=== PATIENT | female | born 1975 | race Caucasian/White ===

== ENCOUNTER 2018-08-03 10:35 | Inpatient (IN) | payer MEDICAID ==
[~2018-08-03] VITALS: Ht 152.4 cm; Wt 82.7 kg
[2018-08-03 10:39] VITALS: Ht 152.4 cm; Wt 82.7 kg
[2018-08-03] MEDS ORDERED: LABE200T25 PO (10:40)
[2018-08-03] MEDS ORDERED: NPH,100I5 SQ ×2 (10:40→10:43)
[2018-08-03] MEDS ORDERED: NOVO7030 SC ×2 (10:41→10:44)
--- NOTE | 2018-08-03 11:35 | TRIAGE ---
OB Triage Datetime Report Generated by CPN: 08/03/2018 11:35 Datetime: 08/03/2018 10:46 Assessment Type: Triage EGA: 29.1 Maternal Assessment Level of Consciousness: Fully Conscious DTR's/Clonus: DTRs 2+; No Clonus Headache: Denies Blurred Vision: No Respiratory Effort: Unlabored; Regular Rhythm; Equal Expansion Breath Sounds, Left: Clear and Equal Breath Sounds, Right: Clear and Equal Nausea/Vomiting: Denies RUQ Epigastric Pain: Present Lower Extremities Edema: None Degree: None Upper Extremities Edema: None Degree: None Facial Edema: None Fall Risk Assessment History of Falling: (0) No Secondary Diagnosis: (0) No Ambulatory Aid: (0) Bedrest/Nurse Assist IV Therapy: (0) No Gait: (0) Normal/Bedrest/Immobile Mental Status: (0) Oriented to Own Ability Fall Score: 0 Fall Risk Score Definition: No Risk: No action required Datetime: 08/03/2018 10:44 Time of Arrival: 08/03/2018 10:44 Arrived By: Ambulatory Arrived From: Home Chief Complaint: PT CAM EIN C/O BLEEDING SINCE YESTERDAY Movement: Present Contractions: Denies/Absent Rupture of Membranes: Denies Vaginal Discharge: Denies Recent Sexual Intercouse: Denies Abdominal Trauma: Not Applicable Patient Complaints: Other Additional Patient Complaints: NONE Time Provider Notified: 08/03/2018 11:00 Provider Notified: GEORGI Initial Plan: NST, BPP, PLACENTA,
[2018-08-03] MEDS ORDERED: MAGNESIUM SULFATE 4 GM/100 ML 100 ML IV ONE (12:00)
[2018-08-03] MEDS: MAGNESIUM SULFATE 20 GM/500 ML 500 ML IV SCH ×2 (12:34→23:18)
[2018-08-03] MEDS: LABETALOL 200 MG TAB PO SCH ×2 (13:28→21:43)
[2018-08-03] MEDS ORDERED: CARBOPROST 250 MCG INJ IM PRN (14:00)
[2018-08-03] MEDS ORDERED: MISOPROSTOL 200 MCG TAB PR PRN ×2 (14:00→16:30)
[2018-08-03] MEDS ORDERED: hydrALAzine 20 MG INJ IV PRN ×2 (14:00→16:30)
[2018-08-03] MEDS ORDERED: OXYTOCIN 30 UNITS/LR 500 ML IV PRN (14:00)
[2018-08-03] MEDS ORDERED: METHYLERGONOVINE 0.2 MG INJ IM PRN (14:00)
[2018-08-03] MEDS ORDERED: LABETALOL HCL 20MG INJ IV ONE (14:00)
[2018-08-03] MEDS ORDERED: BETAMET NA PHOS/AC(6 MG/ML) 2 ML INJ SYG IM SCH (14:00)
[2018-08-03] MEDS ORDERED: CEFAZOLIN 2 GM/50 ML (PMX) 50 ML IVPB SCH (14:00)
[2018-08-03] MEDS ORDERED: LABETALOL HCL 20MG INJ IV PRN ×2 (14:00)
--- NOTE | 2018-08-03 14:10 | HP ---
Date/Time of Note Date/Time of Note DATE: 08/03/18 TIME: 14:03 OB - History Hx of Present Free Text/Dictation 43 YO with EDC 10/18/2018 with IUP at 29.1 weeks who presents to L&D due to vaginal spotting. she has severe range BPs and 2+ proteinuria and elevated AST and ALT and decreased platelet. Both Dr. Goode and I agree that she needs to be delivered. not safe to prolong the to get benefit from steroids. I discussed with the patient the risks, benefits, indications, and alternatives of including but not limited to risks of infection, bleeding, damage to other organs, bowel, bladder, hernia formation, scar formation, possibility of blood transfusion, possible need for emergency hysterectomy and risks of prematurity that may cause permanent mental or physical disabilities or . She was allowed to ask questions. All her questions were answered. Informed consent has been obtained. Care: Good Care Ultrasounds: Normal mid trimester US Obstetrical Complications: Pre-eclampsia, Other (Preeclampsia with severe features and HELLP Syndrome superimposed on chronic hypertension and Type 2 Diabete) Past Family/Social History * Past Medical, Surgical, Family and Obstetric Histories reviewed from chart. OB Admission Exam Physical Exam HEENT: WNL Heart: Rhythm Normal Lungs: Clear, Equal Abdomen: WNL Extremities: Normal Reflexes: Normal Last 72 hours Lab Results CBC & BMP 08/03/18 12:00 Liver Function Test 08/03/18 12:00 Alanine Aminotransferase (ALT/SGPT) 96 H Albumin 3.2 L Alkaline Phosphatase 142 H Aspartate Amino Transf (AST/SGOT) 139 H Direct Bilirubin 0.00 Total Protein 6.5 Magnesium Level Test 08/03/18 12:00 Magnesium Level 1.8 OB Assessment/Plan Other Assessment: IUP at 29.1 weeks Preeclampsia with severe features and HELLP Syndrome superimposed on chronic hypertension and Type 2 Diabetes Plan: Section SETH LAUREANO MD August 03, 2018 14:10
--- NOTE | 2018-08-03 14:52 | PREAC ---
Date/Time of Note Date/Time of Note DATE: 08/03/18 TIME: 14:51 Anesthesia Eval and Record Evaluation Time Pre-Procedure Interview DATE: 08/03/18 TIME: 14:51 Age 43 Sex female NPO: 8 hrs Preoperative diagnosis IUP AT 29 WEEKS Planned procedure EMERGENT C SECTION Past Medical History Past Medical History: Includes Heme: Anemia, Thrombocytopenia : PIH Surgery & Anesthesia Issues No known issue Meds Anticoagulation: No Beta Nathaly within 24 hr: No Reason Beta Nathaly not given: Pt. not on B-Nathaly Reported Medications Insulin Isophan/Regular (Humulin 70/30) 100 Units/Ml Susp, 13 UNIT SC AC DINNER, EA 08/03/18 NPH, Human Insulin Isophane (Humulin N Kwikpen) 100 Unit/1 Ml Insuln.pen, 17 UNIT SQ AC DINNER, EA 08/03/18 Insulin Isophan/Regular (Humulin 70/30) 100 Units/Ml Susp, 21 UNIT SC AC BREAKFAST, EA 08/03/18 NPH, Human Insulin Isophane (Humulin N Kwikpen) 100 Unit/1 Ml Insuln.pen, 35 UNIT SQ, EA 08/03/18 Labetalol Hcl* (Labetalol Hcl*) 200 Mg Tablet, 200 MG PO BID, TAB 08/03/18 Current Medications Lactated Ringer's 1,000 ml @ 125 mls/hr Q8H IV ; Start 08/03/18 at 11:59 Magnesium Sulfate 500 ml @ 50 mls/hr Q10H IV Last administered on 08/03/18at 12:34; Admin Dose 50 MLS/HR; Start 08/03/18 at 11:59 Prenat Multivit/ [place]/Iron/Folic Ac () 1 tab DAILY PO ; Start 08/04/18 at 09:00 Ferrous Sulfate (Ferrous Sulfate (Ec)) 325 mg DAILY PO ; Start 08/04/18 at 09:00 Docusate Sodium (Colace) 100 mg DAILY PO ; Start 08/04/18 at 09:00 Labetalol HCl (Normodyne) 200 mg BID PO Last administered on 08/03/18at 13:28; Admin Dose 200 MG; Start 08/03/18 at 12:00 Labetalol HCl (Labetalol) 40 mg ONCE PRN IV ELEVATED BLOOD PRESSURE; Start 08/03/18 at 14:00 Labetalol HCl (Labetalol) 80 mg ONCE PRN IV ELEVATED BLOOD PRESSURE; Start 08/03/18 at 14:00 Hydralazine HCl (Apresoline) 10 mg ONCE PRN IV ELEVATED BLOOD PRESSURE; Start 08/03/18 at 14:00 Betamethasone Acet/Betameth SodPhos (Celestone Soluspan) 12 mg Q24H IM Last administered on 08/03/18at 14:31; Admin Dose 12 MG; Start 08/03/18 at 14:00; Stop 08/04/18 at 14:01 Cefazolin Sodium/ Dextrose 50 ml @ 100 mls/hr ONCE IVPB ; Start 08/03/18 at 14:0 0 Oxytocin/Lactated Ringer's 500 ml @ 125 mls/hr POST IV ; Start 08/03/18 at 14:00 Oxytocin/Lactated Ringer's 500 ml @ 0 mls/hr ONCE PRN IV .VAGINAL BLEEDING; Start 08/03/18 at 14:00 Methylergonovine Maleate (Methergine) 0.2 mg ONCE PRN IM .VAGINAL BLEEDING; Start 08/03/18 at 14:00 Carboprost Tromethamine (Hemabate) 250 mcg ONCE PRN IM .VAGINAL BLEEDING; Start 08/03/18 at 14:00 Misoprostol (Cytotec) 1,000 mcg ONCE PRN OR .VAGINAL BLEEDING; Start 08/03/18 at 14:00 Meds reviewed: Yes Allergies Coded Allergies: No Known Allergy (Unverified , 08/03/18) Allergies Reviewed: Yes Labs/Studies Labs Reviewed: Reviewed by anesthesiologist Result Diagram: 08/03/18 1200 08/03/18 1200 Laboratory Tests 08/03/18 12:00 Blood Bank Test 08/03/18 12:00 08/03/18 13:57 Blood Type O POSITIVE Rh Immune Globulin Candidate NO Blood Product Summary Counts test: Positive Pre-procedure Exam Airway: Adequate mouth opening, Adequate thyromental dist Mallampati: Mallampati II Teeth: Normal Lung: Normal Heart: Normal ASA Physical Status ASA physical status: 3 Emergency: None Planned Anesthetic Neuraxial: Spinal Planned Pain Management Sub-arachniod narcotics Pre-operative Attestations Prior to commencing anesthesia and surgery, the patient was re-evaluated, there was verification of: *The patient's identity *The results of appropriate recent lab work and preoperative vital signs *The above evaluation not changing prior to induction *Anesthetic plan, risk benefits, alternative and complications discussed with patient/family; questions answered; patient/family understands, accepts and wishes to proceed. MUMTAZ DUTTON August 03, 2018 14:52
[2018-08-03] MEDS ORDERED: morphine SULFATE/PF (10 MG/10 ML) INJ ONE (15:01)
[2018-08-03] MEDS ORDERED: FENTAnyl 50 MCG/ML VIAL ONE (15:08)
[2018-08-03] MEDS ORDERED: ONDANSETRON 4 MG INJ ONE (15:08)
[2018-08-03] MEDS ORDERED: DEXAMETHASONE 4 MG/ML 1 ML INJ ONE (15:08)
[2018-08-03] MEDS ORDERED: OXYTOCIN 30 UNITS/LR 500 ML IV ONE ×2 (15:27→15:39)
[2018-08-03] MEDS ORDERED: DIPHENHYDRAMINE 50 MG INJ IV PRN (16:00)
[2018-08-03] MEDS ORDERED: ZOLPIDEM 5 MG TAB PO PRN (16:00)
[2018-08-03] MEDS ORDERED: HYDROmorphONE 0.5 MG/0.5 ML SYG IV PRN ×2 (16:00)
[2018-08-03] MEDS ORDERED: KETOROLAC 30 MG INJ IV PRN (16:00)
[2018-08-03] MEDS ORDERED: NALOXONE (0.4 MG/ML) INJ IV PRN (16:00)
--- NOTE | 2018-08-03 16:10 | OPR ---
Date/Time of Note Date/Time of Note DATE: 08/03/18 TIME: 16:06 Operative Report Procedure Date: August 03, 2018 Preoperative Diagnosis IUP at 29 weeks Preeclampsia with severe features HELLP Syndrome Diabetes Vaginal bleeding Postoperative Diagnosis Same Operation/Procedure Performed Primary low transverse delivery Surgeon Corie Delgado MD Phototypesetting Equipment Monitor Miryam Ramirez MD Anesthesia Type: spinal Estimated Blood Loss: other (700) Transfusion none Specimen placenta Grafts/Implants none Tubes/Drains Edouard Cath Complications none Pt Condition Post Procedure: stable Disposition: PACU Procedure Description The risks, benefits, indications, alternatives of procedure including, but not limited to risk of infection, bleeding, damage to other organs, bowel, bladder, hernia formation, scar formation, possibility of blood transfusions were discussed with the patient. She was allowed to ask questions. All her questions were answered. Informed consent was obtained. DESCRIPTION OF PROCEDURE: She was taken to the operating room. Spinal anesthesia was induced. She was prepped and draped in the usual sterile fashion. Surgical time out one. Anesthesia was tested to be adequate. With permission from anesthesiologist, a knife was used to make a Pfannenstiel skin incision. The incision was taken down in layers. The fascia was cut, undermined and from the underlying muscle using sharp and blunt dissection. All the bleeders were cauterized. Peritoneum was entered bluntly. A low transverse incision was developed over the uterus. Amniotic fluid was clear and adequate. A viable infant in vertex presentation was delivered without any difficulty. The cord was clamped and cut, handed to awaiting team. Placenta was then delivered. Uterus was exteriorized, wrapped around a moist lap. Inside uterus was cleaned using a dry lap. All residual membranes were removed. The uterine incision was then closed using #1 Monocryl in 2 layers. The uterus was inserted back inside the abdominal cavity. Irrigation was done carefully. Careful evaluation of the uterine incision revealed no further bleeding. The peritoneum and rectus muscles and fascia were evaluated. All bleeders cauterized. Peritoneum was closed using 2-0 Monocryl. At this time, the count was correct. Rectus muscle was reapproximated using 2-0 Monocryl. Rectus fascia was closed using #1 Vicryl. Subcutaneous tissue was cleaned and irrigated. All bleeders cauterized and the skin closed using 4-0 Monocryl. All counts correct. CORIE DELGADO MD August 03, 2018 16:10
[2018-08-03] MEDS ORDERED: LACTATED RINGER'S 1,000 ML IV SCH (16:12)
[2018-08-03] MEDS ORDERED: OXYCODONE/ACETAMINOPHEN (5/325) TAB PO PRN (16:30)
[2018-08-03] MEDS ORDERED: LANOLIN HPA 1 PKT TOP PRN (16:30)
[2018-08-03] MEDS ORDERED: NA PHOSPHATE/BIPHOS 133 ML ENEMA PR PRN (16:30)
--- NOTE | 2018-08-03 16:36 | CONS ---
Assessment/Plan Assessment/Plan Problems: (1) Diabetes mellitus type 2 in obese Status: Chronic Comment: I expect her sugars will have some degree of rise after the betamethasone dosing. However in the setting she is also now and delivered. Her insulin needs would have decreased enormously. For now can place her on very low-dose insulin therapy with frequent Accu-Cheks. When she starts to get past the immediately worrisome phase of help syndrome we can liberalize has had some more routine protocol. In addition at that time I would then add in the metformin. We will see how she does over the next 48 hours with getting this transition over to more stable outpatient regimen. For now will be a little bit more intensively involved (2) HELLP syndrome (HELLP), third trimester Status: Acute Comment: Medially . Follow closely for liver chemistries, and platelet counts and hypertension. (3) -induced hypertension in second trimester Status: Acute Comment: She is on calcium channel gayle for this at this time. Working with Dr. Gutierrez Consultation Date/Type/Reason Admit Date/Time August 03, 2018 at 11:00 Date of Consultation: August 03, 2018 Type of Consult Endocrinology Reason for Consultation Diabetes mellitus type 2 predating this ; patient admitted with help syndrome and eclampsia requiring urgent delivery. Requesting Provider: SETH LAUREANO MD Date/Time of Note DATE: 08/03/18 TIME: 16:27 Hx of Present Illness Charadriana 43-year-old female G4, P3 Ab1 immediately post emergent delivery. She is seen in the recovery area of labor and delivery. Has a history of type 2 diabetes managed with metformin as a single agent prior to . Reports she did not have elevations of blood pressure prepregnancy. She did come into the hospital with help syndrome and eclampsia and required urgent delivery. In addition of the time of delivery she was given a dosage of betamethasone for the benefit of the baby. We are asked to assist with her as her sugars are expected to rise somewhat. Constitutional: no complaints Eyes: no complaints ENT: no complaints Respiratory: no complaints Cardiovascular: no complaints Gastrointestinal: other (Abnormal LFTs acutely with help syndrome) Genitourinary: no complaints Musculoskeletal: no complaints Skin: no complaints Past Medical History Medical History: diabetes (Type II), other (G4, P3 Ab1) Home Meds Reported Medications Insulin Isophan/Regular (Humulin 70/30) 100 Units/Ml Susp, 13 UNIT SC AC DINNER, EA 08/03/18 NPH, Human Insulin Isophane (Humulin N Kwikpen) 100 Unit/1 Ml Insuln.pen, 17 UNIT SQ AC DINNER, EA 08/03/18 Insulin Isophan/Regular (Humulin 70/30) 100 Units/Ml Susp, 21 UNIT SC AC BREAKFAST, EA 08/03/18 NPH, Human Insulin Isophane (Humulin N Kwikpen) 100 Unit/1 Ml Insuln.pen, 35 UNIT SQ, EA 08/03/18 Labetalol Hcl* (Labetalol Hcl*) 200 Mg Tablet, 200 MG PO BID, TAB 08/03/18 Medications Current Medications Lactated Ringer's 1,000 ml @ 125 mls/hr Q8H IV ; Start 08/03/18 at 11:59 Magnesium Sulfate 500 ml @ 50 mls/hr Q10H IV Last administered on 08/03/18at 12:34; Admin Dose 50 MLS/HR; Start 08/03/18 at 11:59 Prenat Multivit/ [place]/Iron/Folic Ac () 1 tab DAILY PO ; Start 08/04/18 at 09:00 Ferrous Sulfate (Ferrous Sulfate (Ec)) 325 mg DAILY PO ; Start 08/04/18 at 09:00 Docusate Sodium (Colace) 100 mg DAILY PO ; Start 08/04/18 at 09:00 Labetalol HCl (Normodyne) 200 mg BID PO Last administered on 08/03/18at 13:28; Admin Dose 200 MG; Start 08/03/18 at 12:00 Labetalol HCl (Labetalol) 40 mg ONCE PRN IV ELEVATED BLOOD PRESSURE; Start 08/03/18 at 14:00 Labetalol HCl (Labetalol) 80 mg ONCE PRN IV ELEVATED BLOOD PRESSURE; Start 08/03/18 at 14:00 Hydralazine HCl (Apresoline) 10 mg ONCE PRN IV ELEVATED BLOOD PRESSURE; Start 08/03/18 at 14:00 Betamethasone Acet/Betameth SodPhos (Celestone Soluspan) 12 mg Q24H IM Last administered on 08/03/18at 14:31; Admin Dose 12 MG; Start 08/03/18 at 14:00; Stop 08/04/18 at 14:01 Cefazolin Sodium/ Dextrose 50 ml @ 100 mls/hr ONCE IVPB ; Start 08/03/18 at 14:00 Oxytocin/Lactated Ringer's 500 ml @ 125 mls/hr POST IV ; Start 08/03/18 at 14:00 Oxytocin/Lactated Ringer's 500 ml @ 0 mls/hr ONCE PRN IV .VAGINAL BLEEDING; Start 08/03/18 at 14:00 Methylergonovine Maleate (Methergine) 0.2 mg ONCE PRN IM .VAGINAL BLEEDING; Start 08/03/18 at 14:00 Carboprost Tromethamine (Hemabate) 250 mcg ONCE PRN IM .VAGINAL BLEEDING; Start 08/03/18 at 14:00 Misoprostol (Cytotec) 1,000 mcg ONCE PRN VT .VAGINAL BLEEDING; Start 08/03/18 at 14:00 Naloxone HCl (Narcan) 0.1 mg Q2M PRN IV .RESP RATE; Start 08/03/18 at 16:00; Stop 08/04/18 at 15:59 Ketorolac Tromethamine (Toradol) 30 mg Q6H PRN IV PAIN AFTER CSECTION; Start 08/03/18 at 16:00; Stop 08/04/18 at 15:59 Hydromorphone HCl (Dilaudid) 0.2 mg Q3H PRN IV .PAIN 1-5; Start 08/03/18 at 16:00; Stop 08/04/18 at 15:59 Hydromorphone HCl (Dilaudid) 0.4 mg Q3H PRN IV .PAIN 6-10; Start 08/03/18 at 16:00; Stop 08/04/18 at 15:59 Diphenhydramine HCl (Benadryl) 25 mg Q6H PRN IV .ITCHING; Start 08/03/18 at 16:00; Stop 08/04/18 at 15:59 Ondansetron HCl (Zofran Inj) 4 mg Q6H PRN IV .NAUSEA/VOMITING; Start 08/03/18 at 16:00; Stop 08/04/18 at 15:59 Zolpidem Tartrate (Ambien) 5 mg HS MAY REPEAT X 1 PRN PO .INSOMNIA; Start 08/03/18 at 16:00; Stop 08/04/18 at 15:59 Miscellaneous Information (* Miscellaneous Pharmacy Order) Duramorph: .2 mg Epidu... GIVEN XX ; Start 08/03/18 at 16:00 Miscellaneous Information (* Miscellaneous Pharmacy Order) Discontinue current oral sulfonylur... ONCE ONCE XX ; Start 08/03/18 at 16:30; Stop 08/03/18 at 16:31 Diagnostic Test (Pha) (Accu-Chek) 1 ea 02 XX ; Start 08/04/18 at 02:00 Miscellaneous Information (* Miscellaneous Pharmacy Order) HYPOGLYCEMIA PROTOCOL w... ONCE ONCE XX ; Start 08/03/18 at 16:30; Stop 08/03/18 at 16:31 Insulin Aspart (Novolog Insulin Pen) NOVOLOG *MILD* ALGORITHM Q6 SC ; Start 08/03/18 at 18:00 Miscellaneous Information (* Miscellaneous Pharmacy Order) Discontinue all previ... ONCE ONCE XX ; Start 08/03/18 at 16:30; Stop 08/03/18 at 16:31 Hydralazine HCl (Apresoline) 10 mg Q4H PRN IV sbp greater than 160; Start 08/03/18 at 16:30 Lactated Ringer's 1,000 ml @ 125 mls/hr Q8H IV ; Start 08/03/18 at 16:12; Stop 08/03/18 at 20:11 Oxycodone/ Acetaminophen (Percocet (5/ 325)) 1 tab Q4H PRN PO .PAIN 4-6; Start 08/03/18 at 16:30 Oxycodone/ Acetaminophen (Percocet (5/ 325)) 2 tab Q4H PRN PO .PAIN 7-10; Start 08/03/18 at 16:30 Simethicone (Mylicon) 160 mg Q8H PRN PO .GAS; Start 08/03/18 at 16:30 Senna/Docusate Sodium (Senokot-S) 1 tab BID PO ; Start 08/03/18 at 21:00 Sodium Biphosphate/ Sodium Phosphate (Fleet Enema) 133 ml DAILY PRN VT .CONSTIPATION; Start 08/03/18 at 16:30 Lanolin (Lanolin Hpa) 1 applic BEDSIDE MEDICATION PRN TOP .NIPPLES; Start 08/03/18 at 16:30 Diphtheria/ Tetanus/Acell Pertussis (Adacel) 0.5 ml ONCE ONCE IM* ; Start 08/06/18 at 09:00; Stop 08/06/18 at 09:01 Measles/Mumps/ Rubella Vaccine Live (Mmr Ii Vaccine) 0.5 ml ONCE ONCE SC* ; Sta rt 08/06/18 at 09:00; Stop 08/06/18 at 09:01 Misoprostol (Cytotec) 1,000 mcg ONCE PRN VT .VAGINAL BLEEDING; Start 08/03/18 at 16:30 Labetalol HCl (Normodyne) 200 mg BID PO ; Start 08/03/18 at 21:00 Nifedipine (Procardia) 10 mg Q6 PO ; Start 08/03/18 at 18:00 Nifedipine (Procardia Xl) 60 mg BID PO ; Start 08/03/18 at 21:00 Allergies: Coded Allergies: No Known Allergy (Unverified , 08/03/18) Past Surgical History Past Surgical Hx: other (S post laparoscopy for ectopic ) Family History Significant Family History: diabetes Social History Born in [facility] and raised there is [place] for 16 years lives with her spouse and 2 children, works as a cook in a fast food restaurant Alcohol Use: none Smoking Status: Former smoker Drug Use: none Exam/Review of Systems Exam Exam Seen in the recovery area of labor and delivery Constitutional: alert, oriented Eyes: nl conjunctiva, EOMI, nl lids ENMT: nl external ears & nose, nl lips & teeth, nl nasal mucosa & septum Neck: supple, non-tender Respiratory: clear to auscultation, normal air movement Cardiovascular: regular rate and rhythm, nl pulses Gastrointestinal: soft, nl liver, spleen, non-tender Extremities: normal pulses Neurological: PAPER SAMPLE CLERK II-XII intact, nl mental status, nl speech, nl strength Results Result Diagram: 08/03/18 1200 08/03/18 1200 Results 24hrs Laboratory Tests Test 08/03/18 11:40 08/03/18 12:00 Urine Color YELLOW Urine Clarity SLIGHTLY CLOUDY A Urine pH 6.0 Urine Specific [place] 1.024 Urine Ketones NEGATIVE Urine Nitrite NEGATIVE Urine Bilirubin NEGATIVE Urine Urobilinogen NEGATIVE Urine Leukocyte Esterase NEGATIVE Urine Microscopic RBC 5 Urine Microscopic WBC 2 Urine Squamous Epithelial Cells FEW Urine Bacteria FEW A Urine Mucus FEW A Urine Hemoglobin 3+ H Urine Glucose NEGATIVE Urine Total Protein 2+ H White Blood Count 12.8 H Red Blood Count 4.45 Hemoglobin 12.8 Hematocrit 38.6 Mean Corpuscular Volume 86.7 Mean Corpuscular Hemoglobin 28.8 L Mean Corpuscular Hemoglobin Concent 33.2 Red Cell Distribution Width 14.5 Platelet Count 74 L Mean Platelet Volume 11.8 H Immature Granulocytes % 0.700 H Neutrophils % 77.1 H Lymphocytes % 15.2 Monocytes % 6.4 Eosinophils % 0.3 Basophils % 0.3 Nucleated Red Blood Cells % 0.0 Immature Granulocytes # 0.090 H Neutrophils # 9.9 H Lymphocytes # 1.9 Monocytes # 0.8 Eosinophils # 0.0 Basophils # 0.0 Nucleated Red Blood Cells # 0.0 Prothrombin Time 13.4 Prothrombin Time Ratio 1.0 INR International Normalized Ratio 1.01 Activated Partial Thromboplast Time 26.9 Fibrinogen 472.0 H Sodium Level 136 Potassium Level 4.0 Chloride Level 108 Carbon Dioxide Level 24 Anion Gap 4 L Blood Urea Nitrogen 13 Creatinine 0.54 Est Glomerular Filtrat Rate mL/min > 60 Glucose Level 102 Calcium Level 9.2 Magnesium Level 1.8 Total Bilirubin 0.4 Direct Bilirubin 0.00 Indirect Bilirubin 0.4 Aspartate Amino Transf (AST/SGOT) 139 H Alanine Aminotransferase (ALT/SGPT) 96 H Alkaline Phosphatase 142 H Total Protein 6.5 Albumin 3.2 L Globulin 3.30 H Albumin/Globulin Ratio 0.96 Medications Medication Current Medications Lactated Ringer's 1,000 ml @ 125 mls/hr Q8H IV ; Start 08/03/18 at 11:59 Magnesium Sulfate 500 ml @ 50 mls/hr Q10H IV Last administered on 08/03/18at 12:34; Admin Dose 50 MLS/HR; Start 08/03/18 at 11:59 Prenat Multivit/ [place]/Iron/Folic Ac () 1 tab DAILY PO ; Start 08/04/18 at 09:00 Ferrous Sulfate (Ferrous Sulfate (Ec)) 325 mg DAILY PO ; Start 08/04/18 at 09:00 Docusate Sodium (Colace) 100 mg DAILY PO ; Start 08/04/18 at 09:00 Labetalol HCl (Normodyne) 200 mg BID PO Last administered on 08/03/18at 13:28; Admin Dose 200 MG; Start 08/03/18 at 12:00 Labetalol HCl (Labetalol) 40 mg ONCE PRN IV ELEVATED BLOOD PRESSURE; Start 08/03/18 at 14:00 Labetalol HCl (Labetalol) 80 mg ONCE PRN IV ELEVATED BLOOD PRESSURE; Start 08/03/18 at 14:00 Hydralazine HCl (Apresoline) 10 mg ONCE PRN IV ELEVATED BLOOD PRESSURE; Start 08/03/18 at 14:00 Betamethasone Acet/Betameth SodPhos (Celestone Soluspan) 12 mg Q24H IM Last administered on 08/03/18at 14:31; Admin Dose 12 MG; Start 08/03/18 at 14:00; Stop 08/04/18 at 14:01 Cefazolin Sodium/ Dextrose 50 ml @ 100 mls/hr ONCE IVPB ; Start 08/03/18 at 14:00 Oxytocin/Lactated Ringer's 500 ml @ 125 mls/hr POST IV ; Start 08/03/18 at 14:00 Oxytocin/Lactated Ringer's 500 ml @ 0 mls/hr ONCE PRN IV .VAGINAL BLEEDING; Start 08/03/18 at 14:00 Methylergonovine Maleate (Methergine) 0.2 mg ONCE PRN IM .VAGINAL BLEEDING; Start 08/03/18 at 14:00 Carboprost Tromethamine (Hemabate) 250 mcg ONCE PRN IM .VAGINAL BLEEDING; Start 08/03/18 at 14:00 Misoprostol (Cytotec) 1,000 mcg ONCE PRN VT .VAGINAL BLEEDING; Start 08/03/18 at 14:00 Naloxone HCl (Narcan) 0.1 mg Q2M PRN IV .RESP RATE; Start 08/03/18 at 16:00; Stop 08/04/18 at 15:59 Ketorolac Tromethamine (Toradol) 30 mg Q6H PRN IV PAIN AFTER CSECTION; Start 08/03/18 at 16:00; Stop 08/04/18 at 15:59 Hydromorphone HCl (Dilaudid) 0.2 mg Q3H PRN IV .PAIN 1-5; Start 08/03/18 at 16:00; Stop 08/04/18 at 15:59 Hydromorphone HCl (Dilaudid) 0.4 mg Q3H PRN IV .PAIN 6-10; Start 08/03/18 at 16:00; Stop 08/04/18 at 15:59 Diphenhydramine HCl (Benadryl) 25 mg Q6H PRN IV .ITCHING; Start 08/03/18 at 16:00; Stop 08/04/18 at 15:59 Ondansetron HCl (Zofran Inj) 4 mg Q6H PRN IV .NAUSEA/VOMITING; Start 08/03/18 at 16:00; Stop 08/04/18 at 15:59 Zolpidem Tartrate (Ambien) 5 mg HS MAY REPEAT X 1 PRN PO .INSOMNIA; Start 08/03/18 at 16:00; Stop 08/04/18 at 15:59 Miscellaneous Information (* Miscellaneous Pharmacy Order) Duramorph: .2 mg Epidu... GIVEN XX ; Start 08/03/18 at 16:00 Miscellaneous Information (* Miscellaneous Pharmacy Order) Discontinue current oral sulfonylur... ONCE ONCE XX ; Start 08/03/18 at 16:30; Stop 08/03/18 at 16:31 Diagnostic Test (Pha) (Accu-Chek) 1 ea 02 XX ; Start 08/04/18 at 02:00 Miscellaneous Information (* Miscellaneous Pharmacy Order) HYPOGLYCEMIA PROTOCOL w... ONCE ONCE XX ; Start 08/03/18 at 16:30; Stop 08/03/18 at 16:31 Insulin Aspart (Novolog Insulin Pen) NOVOLOG *MILD* ALGORITHM Q6 SC ; Start 08/03/18 at 18:00 Miscellaneous Information (* Miscellaneous Pharmacy Order) Discontinue all previ... ONCE ONCE XX ; Start 08/03/18 at 16:30; Stop 08/03/18 at 16:31 Hydralazine HCl (Apresoline) 10 mg Q4H PRN IV sbp greater than 160; Start 08/03/18 at 16:30 Lactated Ringer's 1,000 ml @ 125 mls/hr Q8H IV ; Start 08/03/18 at 16:12; Stop 08/03/18 at 20:11 Oxycodone/ Acetaminophen (Percocet (5/ 325)) 1 tab Q4H PRN PO .PAIN 4-6; Start 08/03/18 at 16:30 Oxycodone/ Acetaminophen (Percocet (5/ 325)) 2 tab Q4H PRN PO .PAIN 7-10; Start 08/03/18 at 16:30 Simethicone (Mylicon) 160 mg Q8H PRN PO .GAS; Start 08/03/18 at 16:30 Senna/Docusate Sodium (Senokot-S) 1 tab BID PO ; Start 08/03/18 at 21:00 Sodium Biphosphate/ Sodium Phosphate (Fleet Enema) 133 ml DAILY PRN VT .CONSTIPATION; Start 08/03/18 at 16:30 Lanolin (Lanolin Hpa) 1 applic BEDSIDE MEDICATION PRN TOP .NIPPLES; Start at 16:30 Diphtheria/ Tetanus/Acell Pertussis (Adacel) 0.5 ml ONCE ONCE IM* ; Start 08/06/18 at 09:00; Stop 08/06/18 at 09:01 Measles/Mumps/ Rubella Vaccine Live (Mmr Ii Vaccine) 0.5 ml ONCE ONCE SC* ; Start 08/06/18 at 09:00; Stop 08/06/18 at 09:01 Misoprostol (Cytotec) 1,000 mcg ONCE PRN VT .VAGINAL BLEEDING; Start 08/03/18 at 16:30 Labetalol HCl (Normodyne) 200 mg BID PO ; Start 08/03/18 at 21:00 Nifedipine (Procardia) 10 mg Q6 PO ; Start 08/03/18 at 18:00 Nifedipine (Procardia Xl) 60 mg BID PO ; Start 08/03/18 at 21:00 MANDEPE RIDER MD August 03, 2018 16:36
--- NOTE | 2018-08-03 16:39 | PN ---
DATE: 08/03/2018 The patient has intrauterine at 29 weeks and 1 day, presented with severe elevation of bloo d pressure. She has chronic hypertension and diabetes. At the time of presentation, blood pressure was 190/105, I believe and the reason for her coming to the hospital was vaginal bleeding. After the laboratory results were done, her platelet is in the 74. AST, ALT are elevated. Given her severe e levation of blood pressure and the lab results, she meets the diagnoses of IUP at 29 weeks and 1 day with HELLP syndrome, vaginal bleeding and some cramping which may be significant for small placental abruption. Currently, heart tone is reassuring. Recommendation is delivery immediately. NICU should be present and consult anesthesia. Three pack units of platelets were ordered as this patien t most likely will need platelet replacement after delivery or intrapartum. Please do note that this patient is at very increased risk of developing pulmonary edema, so strict ins and outs are recommen ded. After delivery, magnesium sulfate should be started and continued at least for 24 hours; amanuel christine if her creatinine is elevated above 1.2, I do recommend checking magnesium level every 1 to 2 hours as she would be at increased risk of magnesium toxicity. In summary, delivery immediately, 3 pack u nits of the platelets and anesthesia consult, NICU to be present, strict ins and outs, advancement on magnesium. She is at increased risk of pulmonary edema even without magnesium sulfate and if creati nine is above 1, then every 1 to 2 hours magnesium level should be assessed to decrease the risk of m agnesium toxicity. In general, platelet function is not decreased during HELLP syndrome, so with the 74,000 of platelet the risk of huge bleeding should be not high but platelet overall is necessary as this patient most likely would need platelet or maybe intrapartum. I explained to the mo ther and the father the very high risk of placental abruption, , maternal DIC, pulmonary e terra or sometimes maternal and therefore the delivery cannot be postponed and they do understan d the will be admitted to ICU for the 's for few weeks. The risks for the fetus are t o be explained by the NICU. Dictated By: VELMA GONZALEZ MD ST/NTS Conf#: [id number] DID#: [id number] CC: SETH LAUREANO MD; SABRINA WELLS MD;*[facility]*
--- NOTE | 2018-08-03 16:48 | CONS ---
Assessment/Plan Assessment/Plan Hospital Course (Demo Recall) Patient is a female the past medical history significant for diabetes mellitus and hypertension who presents to [facility] for vaginal bleeding. Patient was diagnosed with elevated blood pressure preeclampsia, help syndrome and baby was delivered by section. Patient is currently doing well in the recovery area of labor and delivery and has no acute complaints. Medicine was consulted for help with management of blood pressure. Patient denies chest pain, shortness of breath, dizziness, vision problems, cannot move her legs yet. Objective Physical exam General: Patient is laying in bed and answers questions appropriately Mentation: Patient is alert and oriented 4, Head: Normocephalic atraumatic Eyes: EOMI, pupils reactive to light Neck: Supple, nontender, midline Respiratory: Clear to auscultation bilaterally Cardiovascular: regular rate, no obvious murmurs Gastrointestinal: Minimally tender to palpation, bowel sounds heard. Neurological: Moves upper extremities spontaneously, cannot move lower extremities spontaneously Skin: Surgical site bandaged, CDI Assessment and plan Preeclampsia with hellp syndrome -Betamethasone and magnesium per OB -We will need to manage her blood pressure carefully, continue patient's labetalol, will be started patient on nifedipine, reasonable to continue however will add parameters. -As needed hydralazine -OB managed with delivery -Monitor very closely Diabetes mellitus -Insulin at home -Printing Assistant is on board Hypertension -Continue home medications and adjust medications while inpatient until danger. Is over from above hellp syndrome. Thrombocytopenia -Likely secondary to above syndrome, transfuse as needed Elevated liver enzymes -Likely secondary to above syndrome, monitor closely, repeat liver labs tomorrow Disposition -Follow along with OB and financial services representative, monitor blood pressure, blood sugars and magnesium level closely. Consultation Date/Type/Reason Admit Date/Time August 03, 2018 at 11:00 Date/Time of Note DATE: 08/03/18 TIME: 16:48 Past Medical History Medical History: diabetes (Type II), other (G4, P3 Ab1) Home Meds Reported Medications Insulin Isophan/Regular (Humulin 70/30) 100 Units/Ml Susp, 13 UNIT SC AC DINNER, EA 08/03/18 NPH, Human Insulin Isophane (Humulin N Kwikpen) 100 Unit/1 Ml Insuln.pen, 17 UNIT SQ AC DINNER, EA 08/03/18 Insulin Isophan/Regular (Humulin 70/30) 100 Units/Ml Susp, 21 UNIT SC AC BREAK FAST, EA 08/03/18 NPH, Human Insulin Isophane (Humulin N Kwikpen) 100 Unit/1 Ml Insuln.pen, 35 UNIT SQ, EA 08/03/18 Labetalol Hcl* (Labetalol Hcl*) 200 Mg Tablet, 200 MG PO BID, TAB 08/03/18 Medications Current Medications Lactated Ringer's 1,000 ml @ 125 mls/hr Q8H IV ; Start 08/03/18 at 11:59 Magnesium Sulfate 500 ml @ 50 mls/hr Q10H IV Last administered on 08/03/18at 12:34; Admin Dose 50 MLS/HR; Start 08/03/18 at 11:59 Prenat Multivit/ [place]/Iron/Folic Ac () 1 tab DAILY PO ; Start 08/04/18 at 09:00 Ferrous Sulfate (Ferrous Sulfate (Ec)) 325 mg DAILY PO ; Start 08/04/18 at 09:00 Docusate Sodium (Colace) 100 mg DAILY PO ; Start 08/04/18 at 09:00 Labetalol HCl (Normodyne) 200 mg BID PO Last administered on 08/03/18at 13:28; Admin Dose 200 MG; Start 08/03/18 at 12:00 Labetalol HCl (Labetalol) 40 mg ONCE PRN IV ELEVATED BLOOD PRESSURE; Start 08/03/18 at 14:00 Labetalol HCl (Labetalol) 80 mg ONCE PRN IV ELEVATED BLOOD PRESSURE; Start 08/03/18 at 14:00 Hydralazine HCl (Apresoline) 10 mg ONCE PRN IV ELEVATED BLOOD PRESSURE; Start 08/03/18 at 14:00 Betamethasone Acet/Betameth SodPhos (Celestone Soluspan) 12 mg Q24H IM Last administered on 08/03/18at 14:31; Admin Dose 12 MG; Start 08/03/18 at 14:00; Stop 08/04/18 at 14:01 Cefazolin Sodium/ Dextrose 50 ml @ 100 mls/hr ONCE IVPB ; Start 08/03/18 at 14:00 Oxytocin/Lactated Ringer's 500 ml @ 125 mls/hr POST IV ; Start 08/03/18 at 14:00 Oxytocin/Lactated Ringer's 500 ml @ 0 mls/hr ONCE PRN IV .VAGINAL BLEEDING; Start 08/03/18 at 14:00 Methylergonovine Maleate (Methergine) 0.2 mg ONCE PRN IM .VAGINAL BLEEDING; Start 08/03/18 at 14:00 Carboprost Tromethamine (Hemabate) 250 mcg ONCE PRN IM .VAGINAL BLEEDING; Start 08/03/18 at 14:00 Misoprostol (Cytotec) 1,000 mcg ONCE PRN SD .VAGINAL BLEEDING; Start 08/03/18 at 14:00 Naloxone HCl (Narcan) 0.1 mg Q2M PRN IV .RESP RATE; Start 08/03/18 at 16:00; Stop 08/04/18 at 15:59 Ketorolac Tromethamine (Toradol) 30 mg Q6H PRN IV PAIN AFTER CSECTION; Start 08/03/18 at 16:00; Stop 08/04/18 at 15:59 Hydromorphone HCl (Dilaudid) 0.2 mg Q3H PRN IV .PAIN 1-5; Start 08/03/18 at 16:00; Stop 08/04/18 at 15:59 Hydromorphone HCl (Dilaudid) 0.4 mg Q3H PRN IV .PAIN 6-10; Start 08/03/18 at 16:00; Stop 08/04/18 at 15:59 Diphenhydramine HCl (Benadryl) 25 mg Q6H PRN IV .ITCHING; Start 08/03/18 at 16:00; Stop 08/04/18 at 15:59 Ondansetron HCl (Zofran Inj) 4 mg Q6H PRN IV .NAUSEA/VOMITING; Start 08/03/18 at 16:00; Stop 08/04/18 at 15:59 Zolpidem Tartrate (Ambien) 5 mg HS MAY REPEAT X 1 PRN PO .INSOMNIA; Start 08/03/18 at 16:00; Stop 08/04/18 at 15:59 Miscellaneous Information (* Miscellaneous Pharmacy Order) Duramorph: .2 mg E pidu... GIVEN XX ; Start 08/03/18 at 16:00 Diagnostic Test (Pha) (Accu-Chek) 1 ea 02 XX ; Start 08/04/18 at 02:00 Hydralazine HCl (Apresoline) 10 mg Q4H PRN IV sbp greater than 160; Start 08/03/18 at 16:30 Lactated Ringer's 1,000 ml @ 125 mls/hr Q8H IV ; Start 08/03/18 at 16:12; Stop 08/03/18 at 20:11 Oxycodone/ Acetaminophen (Percocet (5/ 325)) 1 tab Q4H PRN PO .PAIN 4-6; Start 08/03/18 at 16:30 Oxycodone/ Acetaminophen (Percocet (5/ 325)) 2 tab Q4H PRN PO .PAIN 7-10; Start 08/03/18 at 16:30 Simethicone (Mylicon) 160 mg Q8H PRN PO .GAS; Start 08/03/18 at 16:30 Senna/Docusate Sodium (Senokot-S) 1 tab BID PO ; Start 08/03/18 at 21:00 Sodium Biphosphate/ Sodium Phosphate (Fleet Enema) 133 ml DAILY PRN SD .CONSTIPATION; Start 08/03/18 at 16:30 Lanolin (Lanolin Hpa) 1 applic BEDSIDE MEDICATION PRN TOP .NIPPLES; Start 08/03/18 at 16:30 Diphtheria/ Tetanus/Acell Pertussis (Adacel) 0.5 ml ONCE ONCE IM* ; Start 08/06/18 at 09:00; Stop 08/06/18 at 09:01 Measles/Mumps/ Rubella Vaccine Live (Mmr Ii Vaccine) 0.5 ml ONCE ONCE SC* ; Start 08/06/18 at 09:00; Stop 08/06/18 at 09:01 Misoprostol (Cytotec) 1,000 mcg ONCE PRN SD .VAGINAL BLEEDING; Start 08/03/18 at 16:30 Nifedipine (Procardia Xl) 60 mg BID PO ; Start 08/03/18 at 21:00 Miscellaneous Information (* Miscellaneous Pharmacy Order) Discontinue current oral sulfonylur... ONCE ONCE XX ; Start 08/03/18 at 17:00; Stop 08/03/18 at 17:01 Diagnostic Test (Pha) (Accu-Chek) 1 ea 2 HOURS AFTER MEALS XX ; Start 08/03/18 at 19:35 Insulin Glargine (Lantus) 4 units DAILY@2000 SC ; Start 08/03/18 at 20:00 Insulin Aspart (Novolog Insulin Pen) 2 unit WITH MEALS SC ; Start 08/03/18 at 17:35 Miscellaneous Information (* Miscellaneous Pharmacy Order) HYPOGLYCEMIA PROTOCOL w... ONCE ONCE XX ; Start 08/03/18 at 17:00; Stop 08/03/18 at 17:01 Insulin Aspart (Novolog Insulin Pen) NOVOLOG *MILD* ALGORITHM WITH MEALS BEDTIME SC ; Start 08/03/18 at 17:35 Miscellaneous Information (* Miscellaneous Pharmacy Order) Discontinue all previ... ONCE ONCE XX ; Start 08/03/18 at 17:00; Stop 08/03/18 at 17:01 Diagnostic Test (Pha) (Accu-Chek) 1 ea Q4 XX ; Start 08/03/18 at 17:00; Stop 08/05/18 at 16:59 Miscellaneous Information 1 ea NOTE XX ; Start 08/03/18 at 17:00 Glucose (Glutose) 15 gm Q15M PRN PO DECREASED GLUCOSE; Start 08/03/18 at 17:00 Glucose (Glutose) 22.5 gm Q15M PRN PO DECREASED GLUCOSE; Start 08/03/18 at 17:00 Dextrose (D50w Syringe) 25 ml Q15M PRN IV DECREASED GLUCOSE; Start 08/03/18 at 17:00 Dextrose (D50w Syringe) 50 ml Q15M PRN IV DECREASED GLUCOSE; Start 08/03/18 at 17:00 Glucagon (Glucagen) 1 mg Q15M PRN IM DECREASED GLUCOSE; Start 08/03/18 at 17:00 Glucose (Glutose) 15 gm Q15M PRN BUCCAL DECREASED GLUCOSE; Start 08/03/18 at 17:00 Allergies: Coded Allergies: No Known Allergy (Unverified , 08/03/18) Past Surgical History Past Surgical Hx: other (S post laparoscopy for ectopic ) Social History Alcohol Use: none Smoking Status: Former smoker Drug Use: none Exam/Review of Systems Results Result Diagram: 08/03/18 1200 08/03/18 1200 Results 24hrs Laboratory Tests Test 08/03/18 11:40 08/03/18 12:00 Urine Color YELLOW Urine Clarity SLIGHTLY CLOUDY A Urine pH 6.0 Urine Specific [place] 1.024 Urine Ketones NEGATIVE Urine Nitrite NEGATIVE Urine Bilirubin NEGATIVE Urine Urobilinogen NEGATIVE Urine Leukocyte Esterase NEGATIVE Urine Microscopic RBC 5 Urine Microscopic WBC 2 Urine Squamous Epithelial Cells FEW Urine Bacteria FEW A Urine Mucus FEW A Urine Hemoglobin 3+ H Urine Glucose NEGATIVE Urine Total Protein 2+ H White Blood Count 12.8 H Red Blood Count 4.45 Hemoglobin 12.8 Hematocrit 38.6 Mean Corpuscular Volume 86.7 Mean Corpuscular Hemoglobin 28.8 L Mean Corpuscular Hemoglobin Concent 33.2 Red Cell Distribution Width 14.5 Platelet Count 74 L Mean Platelet Volume 11.8 H Immature Granulocytes % 0.700 H Neutrophils % 77.1 H Lymphocytes % 15.2 Monocytes % 6.4 Eosinophils % 0.3 Basophils % 0.3 Nucleated Red Blood Cells % 0.0 Immature Granulocytes # 0.090 H Neutrophils # 9.9 H Lymphocytes # 1.9 Monocytes # 0.8 Eosinophils # 0.0 Basophils # 0.0 Nucleated Red Blood Cells # 0.0 Prothrombin Time 13.4 Prothrombin Time Ratio 1.0 INR International Normalized Ratio 1.01 Activated Partial Thromboplast Time 26.9 Fibrinogen 472.0 H Sodium Level 136 Potassium Level 4.0 Chloride Level 108 Carbon Dioxide Level 24 Anion Gap 4 L Blood Urea Nitrogen 13 Creatinine 0.54 Est Glomerular Filtrat Rate mL/min > 60 Glucose Level 102 Calcium Level 9.2 Magnesium Level 1.8 Total Bilirubin 0.4 Direct Bilirubin 0.00 Indirect Bilirubin 0.4 Aspartate Amino Transf (AST/SGOT) 139 H Alanine Aminotransferase (ALT/SGPT) 96 H Alkaline Phosphatase 142 H Total Protein 6.5 Albumin 3.2 L Globulin 3.30 H Albumin/Globulin Ratio 0.96 Rapid Plasma Reagin NONREACTIVE Medications Medication Current Medications Lactated Ringer's 1,000 ml @ 125 mls/hr Q8H IV ; Start 08/03/18 at 11:59 Magnesium Sulfate 500 ml @ 50 mls/hr Q10H IV Last administered on 08/03/18at 12:34; Admin Dose 50 MLS/HR; Start 08/03/18 at 11:59 Prenat Multivit/ [place]/Iron/Folic Ac () 1 tab DAILY PO ; Start 08/04/18 at 09:00 Ferrous Sulfate (Ferrous Sulfate (Ec)) 325 mg DAILY PO ; Start 08/04/18 at 09:00 Docusate Sodium (Colace) 100 mg DAILY PO ; Start 08/04/18 at 09:00 Labetalol HCl (Normodyne) 200 mg BID PO Last administered on 08/03/18at 13:28; Admin Dose 200 MG; Start 08/03/18 at 12:00 Labetalol HCl (Labetalol) 40 mg ONCE PRN IV ELEVATED BLOOD PRESSURE; Start 08/03/18 at 14:00 Labetalol HCl (Labetalol) 80 mg ONCE PRN IV ELEVATED BLOOD PRESSURE; Start 08/03/18 at 14:00 Hydralazine HCl (Apresoline) 10 mg ONCE PRN IV ELEVATED BLOOD PRESSURE; Start 08/03/18 at 14:00 Betamethasone Acet/Betameth SodPhos (Celestone Soluspan) 12 mg Q24H IM Last administered on 08/03/18at 14:31; Admin Dose 12 MG; Start 08/03/18 at 14:00; Stop 08/04/18 at 14:01 Cefazolin Sodium/ Dextrose 50 ml @ 100 mls/hr ONCE IVPB ; Start 08/03/18 at 14:00 Oxytocin/Lactated Ringer's 500 ml @ 125 mls/hr POST IV ; Start 08/03/18 at 14:00 Oxytocin/Lactated Ringer's 500 ml @ 0 mls/hr ONCE PRN IV .VAGINAL BLEEDING; Start 08/03/18 at 14:00 Methylergonovine Maleate (Methergine) 0.2 mg ONCE PRN IM .VAGINAL BLEEDING; Start 08/03/18 at 14:00 Carboprost Tromethamine (Hemabate) 250 mcg ONCE PRN IM .VAGINAL BLEEDING; Start 08/03/18 at 14:00 Misoprostol (Cytotec) 1,000 mcg ONCE PRN SD .VAGINAL BLEEDING; Start 08/03/18 at 14:00 Naloxone HCl (Narcan) 0.1 mg Q2M PRN IV .RESP RATE; Start 08/03/18 at 16:00; Stop 08/04/18 at 15:59 Ketorolac Tromethamine (Toradol) 30 mg Q6H PRN IV PAIN AFTER CSECTION; Start 08/03/18 at 16:00; Stop 08/04/18 at 15:59 Hydromorphone HCl (Dilaudid) 0.2 mg Q3H PRN IV .PAIN 1-5; Start 08/03/18 at 16:00; Stop 08/04/18 at 15:59 Hydromorphone HCl (Dilaudid) 0.4 mg Q3H PRN IV .PAIN 6-10; Start 08/03/18 at 16:00; Stop 08/04/18 at 15:59 Diphenhydramine HCl (Benadryl) 25 mg Q6H PRN IV .ITCHING; Start 08/03/18 at 16:00; Stop 08/04/18 at 15:59 Ondansetron HCl (Zofran Inj) 4 mg Q6H PRN IV .NAUSEA/VOMITING; Start 08/03/18 at 16:00; Stop 08/04/18 at 15:59 Zolpidem Tartrate (Ambien) 5 mg HS MAY REPEAT X 1 PRN PO .INSOMNIA; Start 08/03/18 at 16:00; Stop 08/04/18 at 15:59 Miscellaneous Information (* Miscellaneous Pharmacy Order) Duramorph: .2 mg Epidu... GIVEN XX ; Start 08/03/18 at 16:00 Diagnostic Test (Pha) (Accu-Chek) 1 ea 02 XX ; Start 08/04/18 at 02:00 Hydralazine HCl (Apresoline) 10 mg Q4H PRN IV sbp greater than 160; Start 08/03/18 at 16:30 Lactated Ringer's 1,000 ml @ 125 mls/hr Q8H IV ; Start 08/03/18 at 16:12; Stop 08/03/18 at 20:11 Oxycodone/ Acetaminophen (Percocet (5/ 325)) 1 tab Q4H PRN PO .PAIN 4-6; Start 08/03/18 at 16:30 Oxycodone/ Acetaminophen (Percocet (5/ 325)) 2 tab Q4H PRN PO .PAIN 7-10; Start 08/03/18 at 16:30 Simethicone (Mylicon) 160 mg Q8H PRN PO .GAS; Start 08/03/18 at 16:30 Senna/Docusate Sodium (Senokot-S) 1 tab BID PO ; Start 08/03/18 at 21:00 Sodium Biphosphate/ Sodium Phosphate (Fleet Enema) 133 ml DAILY PRN SD .CONSTIPATION; Start 08/03/18 at 16:30 Lanolin (Lanolin Hpa) 1 applic BEDSIDE MEDICATION PRN TOP .NIPPLES; Start 08/03/18 at 16:30 Diphtheria/ Tetanus/Acell Pertussis (Adacel) 0.5 ml ONCE ONCE IM* ; Start 08/06/18 at 09:00; Stop 08/06/18 at 09:01 Measles/Mumps/ Rubella Vaccine Live (Mmr Ii Vaccine) 0.5 ml ONCE ONCE SC* ; Start 08/06/18 at 09:00; Stop 08/06/18 at 09:01 Misoprostol (Cytotec) 1,000 mcg ONCE PRN SD .VAGINAL BLEEDING; Start 08/03/18 at 16:30 Nifedipine (Procardia Xl) 60 mg BID PO ; Start 08/03/18 at 21:00 Miscellaneous Information (* Miscellaneous Pharmacy Order) Discontinue current oral sulfonylur... ONCE ONCE XX ; Start 08/03/18 at 17:00; Stop 08/03/18 at 17:01 Diagnostic Test (Pha) (Accu-Chek) 1 ea 2 HOURS AFTER MEALS XX ; Start 08/03/18 at 19:35 Insulin Glargine (Lantus) 4 units DAILY@2000 SC ; Start 08/03/18 at 20:00 Insulin Aspart (Novolog Insulin Pen) 2 unit WITH MEALS SC ; Start 08/03/18 at 17:35 Miscellaneous Information (* Miscellaneous Pharmacy Order) HYPOGLYCEMIA PROTOCOL w... ONCE ONCE XX ; Start 08/03/18 at 17:00; Stop 08/03/18 at 17:01 Insulin Aspart (Novolog Insulin Pen) NOVOLOG *MILD* ALGORITHM WITH MEALS BEDTIME SC ; Start 08/03/18 at 17:35 Miscellaneous Information (* Miscellaneous Pharmacy Order) Discontinue all previ... ONCE ONCE XX ; Start 08/03/18 at 17:00; Stop 08/03/18 at 17:01 Diagnostic Test (Pha) (Accu-Chek) 1 ea Q4 XX ; Start 08/03/18 at 17:00; Stop 08/05/18 at 16:59 Miscellaneous Information 1 ea NOTE XX ; Start 08/03/18 at 17:00 Glucose (Glutose) 15 gm Q15M PRN PO DECREASED GLUCOSE; Start 08/03/18 at 17:00 Glucose (Glutose) 22.5 gm Q15M PRN PO DECREASED GLUCOSE; Start 08/03/18 at 17:00 Dextrose (D50w Syringe) 25 ml Q15M PRN IV DECREASED GLUCOSE; Start 08/03/18 at 17:00 Dextrose (D50w Syringe) 50 ml Q15M PRN IV DECREASED GLUCOSE; Start 08/03/18 at 17:00 Glucagon (Glucagen) 1 mg Q15M PRN IM DECREASED GLUCOSE; Start 08/03/18 at 17:00 Glucose (Glutose) 15 gm Q15M PRN BUCCAL DECREASED GLUCOSE; Start 08/03/18 at 17:00 SABRINA WELLS August 03, 2018 16:48
[2018-08-03] MEDS ORDERED: GLUCOSE GEL 15 GRAM TUBE BUCCAL PRN (17:00)
[2018-08-03] MEDS ORDERED: DEXTROSE 50% 50 ML SYRINGE IV PRN ×2 (17:00)
[2018-08-03] MEDS ORDERED: GLUCAGON 1 MG INJ IM PRN (17:00)
[2018-08-03] MEDS ORDERED: GLUCOSE GEL 15 GRAM TUBE PO PRN ×2 (17:00)
--- NOTE | 2018-08-03 17:21 | PAC ---
Date/Time of Note Date/Time of Note DATE: 08/03/18 TIME: 17:20 Post-Anesthesia Notes Post-Anesthesia Note Last documented vital signs TEMP 97.8 BP 106/67 P 78 o2 SAT 97% Activity: WNL Respiratory function: WNL Cardiovascular function: WNL Mental status: Baseline Pain reasonably controlled: Yes Hydration appropriate: Yes Nausea/Vomiting absent: Yes MUMTAZ DUTTON August 03, 2018 17:21
[2018-08-03] MEDS ORDERED: INSULIN ASPART [NOVOLOG] 3 ML PEN SC SCH (18:00)
[2018-08-03] MEDS ORDERED: NIFEdipine 10 MG CAP PO SCH (18:00)
[2018-08-03] MEDS: OXYTOCIN 30 UNITS/LR 500 ML IV SCH ×2 (19:07→23:17)
[2018-08-03] MEDS: ACCU-CHEK XX SCH (19:35)
[2018-08-03] MEDS: INSULIN GLARGINE [LANTus] (100 UNITS/ML) SYG SC SCH (20:00)
[2018-08-03] MEDS: LACTATED RINGER'S 1,000 ML IV SCH ×2 (20:56→20:59)
[2018-08-03] MEDS: INSULIN ASPART [NOVOLOG] 3 ML PEN SC SCH ×2 (20:57→20:58)
[2018-08-03] MEDS ORDERED: LABETALOL 200 MG TAB PO SCH ×2 (21:00)
[2018-08-03] MEDS: NIFEdipine (XL) 60 MG TAB PO SCH (21:44)
[2018-08-03] MEDS: ONDANSETRON 4 MG INJ IV PRN (22:16)
[2018-08-03 23:19] VITALS: BP 115/79; PULSE 73; RESP 18
[2018-08-04] VITALS (7 sets, daily range): BP systolic 104–134; BP diastolic 61–83; PULSE 69–88; RESP 16–20
[2018-08-04] MEDS: ACCU-CHEK XX SCH ×11 (01:30→21:00)
[2018-08-04] MEDS: SENNA/DOCUSATE NA (8.6MG/50MG) TAB PO SCH ×3 (01:32→21:55)
[2018-08-04] MEDS ORDERED: ACCU-CHEK XX SCH (02:00)
[2018-08-04] MEDS: INSULIN ASPART [NOVOLOG] 3 ML PEN SC SCH ×7 (02:03→21:52)
[2018-08-04] MEDS: LACTATED RINGER'S 1,000 ML IV SCH ×3 (03:59→22:01)
[2018-08-04] MEDS: OXYTOCIN 30 UNITS/LR 500 ML IV SCH (06:54)
[2018-08-04] MEDS: LABETALOL 200 MG TAB PO SCH ×2 (08:29→21:00)
[2018-08-04] MEDS: DOCUSATE SODIUM 100 MG CAP PO SCH (08:29)
[2018-08-04] MEDS: FERROUS SULFATE (EC) 325 MG TAB PO SCH (08:29)
[2018-08-04] MEDS: NIFEdipine (XL) 60 MG TAB PO SCH (08:30)
[2018-08-04] MEDS: ONDANSETRON 4 MG INJ IV PRN (08:35)
[2018-08-04] MEDS: MAGNESIUM SULFATE 20 GM/500 ML 500 ML IV SCH (09:28)
--- NOTE | 2018-08-04 09:32 | QN ---
Documentation Comment s/p c/s Subjective: no complaint Objective: Afebrile, VSS NAD A&O Abdomen: soft, appropriate tender Incision: no sign of bleeding/infection mild lochia Extremity: 1+ edema bilaterally Assessment: Preeclampsia with severe features and HELLP syndrome. BPs so far managed by combination of Labetalol and Procardia XL. Hgb and PLT also stable DM. s/p Betamethasone S/p C/S Recovering Well Plan: current care. OK to transfer to SETH LAUREANO MD August 04, 2018 09:32
--- NOTE | 2018-08-04 12:41 | CONS ---
Assessment/Plan Assessment/Plan Problems: (1) Diabetes mellitus type 2 in obese Status: Chronic Comment: At this time the patient has adequate glycemic control. Since she is planning to breast-feed the child to keep this is a simple regimen with the least amount of oral medications possible. As such she will be on an insulin based protocol. Please note she should be able to go ahead and take the insulin doses as currently scheduled. (2) Essential hypertension Status: Chronic Comment: Concur with usage of the dihydropyridine calcium channel gayle in this setting. When she is no longer breast-feeding this should be transitioned over to an MAGEN inhibitor or an angiotensin II receptor gayle (3) HELLP syndrome (HELLP), third trimester Status: Acute Comment: Continued observation. Please note that the patient still has thrombocytopenia and elevated liver chemistries. Consultation Date/Type/Reason Admit Date/Time August 03, 2018 at 11:00 Initial Consult Date 08/03/18 Type of Consult Endocrinology Reason for Consultation Diabetes mellitus type 2 predating the ; hypertension predating ; admission at 29 weeks and 1 day with eclampsia and help syndrome. Now status post urgent Requesting Provider: SETH LAUREANO MD Date/Time of Note DATE: 08/04/18 TIME: 12:39 24 HR Interval Summary Free Text/Dictation Patient reports she is tired and somewhat dizzy but otherwise doing okay. Constitutional: no complaints (No fevers chills or sweats) Detailed Summary Respiratory: no complaints Cardiovascular: no complaints Gastrointestinal: no complaints Exam/Review of Systems Exam Vitals Vital Signs Date Temp Pulse Resp B/P (MAP) Pulse Ox O2 O2 Flow FiO2 Time Delivery Rate 08/04/18 98.0 69 20 122/80 Room Air 08:04 (94) 08/04/18 94 03:59 Intake and Output 08/03/18 08/03/18 08/04/18 1515:00 23:00 07:00 IntakeIntake Total 100 ml 400 ml 1550 ml OutputOutput Total 761 ml 550 ml BalanceBalance 100 ml -361 ml 1000 ml Constitutional: alert, oriented Neck: supple, non-tender Respiratory: clear to auscultation, normal air movement Results Result Diagram: 08/04/18 0559 08/04/18 0559 Results 24hrs Laboratory Tests Test 08/03/18 15:53 08/03/18 15:54 08/03/18 18:04 08/03/18 18:06 Blood Gas CBV CBA Specimen Source Arterial Blood 08/03/2018 3:50:00 08/03/2018 3:46:00 Date Drawn PM PM Arterial Blood CORD CORD Gas Puncture Site Sunil Test N/A N/A Cord Blood 0.8 1.1 Carboxyhemoglobi n Cord Venous 7.257 Blood pH Cord Venous 54.0 H Blood PCO2 Cord Venous 11.6 L Blood PO2 Cord Venous 23.5 Blood HCO3 Cord Venous -4.3 Blood Base Excess POC Cord Venous 17.5 Blood Oxygen Sat Cord Venous 14.9 Blood Hemoglobin Cord Venous 17.0 Blood Oxyhemoglo bin Cord Venous 2.0 Blood Methemoglo bin Blood Gas A-a O2 73.5 68.0 Differential Blood Gas 37.0 37.0 Temperature Blood Gas ROOM AIR ROOM AIR Modality FiO2 21.0 21.0 Blood Gas Leanne SANCHEZ RN Critical Value Read Back Blood Gas NB NB Notified Whom Blood Gas 08/03/2018 4:00:00 08/03/2018 4:01:00 Notified Time PM PM Cord Arterial 7.318 Blood pH Cord Arterial 51.2 H Blood PCO2 Cord Arterial 20.4 Blood PO2 Cord Arterial 25.7 Blood HCO3 Cord Arterial -1.2 Blood Base Excess POC Cord 44.7 Arterial Blood O2 Sat Cord Arterial 15.2 Blood Hemoglobin Cord Arterial 43.5 Blood Oxyhemoglo bin Cord Arterial 1.6 Blood Methemoglo bin Magnesium Level 4.7 #H Bedside Glucose 93 Test 08/03/18 20:05 08/04/18 00:31 08/04/18 01:27 08/04/18 05:59 Bedside Glucose 107 141 Magnesium Level 6.1 *H 6.6 *H White Blood 22.3 #H Count Red Blood Count 4.24 Hemoglobin 12.3 Hematocrit 36.9 L Mean Corpuscular 87.0 Volume Mean Corpuscular 29.0 Hemoglobin Mean Corpuscular 33.3 Hemoglobin Evelyn nt Red Cell 14.6 H Distribution Width Platelet Count 75 L Mean Platelet 11.6 H Volume Immature 0.800 H Granulocytes % Neutrophils % 88.3 H Lymphocytes % 8.1 L Monocytes % 2.7 Eosinophils % 0.0 Basophils % 0.1 Nucleated Red 0.0 Blood Cells % Immature 0.180 H Granulocytes # Neutrophils # 19.6 H Lymphocytes # 1.8 Monocytes # 0.6 Eosinophils # 0.0 Basophils # 0.0 Nucleated Red 0.0 Blood Cells # Sodium Level 131 L Potassium Level 4.7 Chloride Level 103 Carbon Dioxide 23 Level Anion Gap 5 Blood Urea 17 Nitrogen Creatinine 0.44 Est Glomerular > 60 Filtrat Rate mL/min Glucose Level 134 Calcium Level 6.8 L Total Bilirubin 0.2 Direct Bilirubin 0.00 Indirect 0.2 Bilirubin Aspartate Amino 76 H Transf (AST/SGOT ) Alanine 82 H Aminotransferase (ALT/SGPT) Alkaline 137 H Phosphatase Total Protein 6.2 Albumin 2.9 L Globulin 3.30 H Albumin/Globulin 0.87 Ratio Test 08/04/18 06:10 08/04/18 08:25 Lab Scanned REFERENCE LAB Report Bedside Glucose 138 Medications Medication Current Medications Lactated Ringer's 1,000 ml @ 125 mls/hr Q8H IV ; Start 08/03/18 at 11:59 Magnesium Sulfate 500 ml @ 50 mls/hr Q10H IV Last administered on 08/04/18at 09:28; Admin Dose 50 MLS/HR; Start 08/03/18 at 11:59; Stop 08/04/18 at 15:15 Prenat Multivit/ [place]/Iron/Folic Ac () 1 tab DAILY PO ; Start 08/04/18 at 09:00 Ferrous Sulfate (Ferrous Sulfate (Ec)) 325 mg DAILY PO Last administered on 08/04/18at 08:29; Admin Dose 325 MG; Start 08/04/18 at 09:00 Docusate Sodium (Colace) 100 mg DAILY PO Last administered on 08/04/18at 08:29; Admin Dose 100 MG; Start 08/04/18 at 09:00 Labetalol HCl (Normodyne) 200 mg BID PO Last administered on 08/04/18at 08:29; Admin Dose 200 MG; Start 08/03/18 at 12:00 Labetalol HCl (Labetalol) 40 mg ONCE PRN IV ELEVATED BLOOD PRESSURE; Start 08/03/18 at 14:00 Labetalol HCl (Labetalol) 80 mg ONCE PRN IV ELEVATED BLOOD PRESSURE; Start 08/03/18 at 14:00 Hydralazine HCl (Apresoline) 10 mg ONCE PRN IV ELEVATED BLOOD PRESSURE; Start 08/03/18 at 14:00 Oxytocin/Lactated Ringer's 500 ml @ 125 mls/hr POST IV Last administered on 08/04/18at 06:54; Admin Dose 125 MLS/HR; Start 08/03/18 at 14:00 Oxytocin/Lactated Ringer's 500 ml @ 0 mls/hr ONCE PRN IV .VAGINAL BLEEDING; Start 08/03/18 at 14:00 Methylergonovine Maleate (Methergine) 0.2 mg ONCE PRN IM .VAGINAL BLEEDING; Start 08/03/18 at 14:00 Carboprost Tromethamine (Hemabate) 250 mcg ONCE PRN IM .VAGINAL BLEEDING; Start 08/03/18 at 14:00 Misoprostol (Cytotec) 1,000 mcg ONCE PRN [place] .VAGINAL BLEEDING; Start 08/03/18 at 14:00 Naloxone HCl (Narcan) 0.1 mg Q2M PRN IV .RESP RATE; Start 08/03/18 at 16:00; Stop 08/04/18 at 15:59 Ketorolac Tromethamine (Toradol) 30 mg Q6H PRN IV PAIN AFTER CSECTION Last administered on 08/03/18at 22:55; Admin Dose 30 MG; Start 08/03/18 at 16:00; Stop 08/04/18 at 15:59 Hydromorphone HCl (Dilaudid) 0.2 mg Q3H PRN IV .PAIN 1-5; Start 08/03/18 at 16:00; Stop 08/04/18 at 15:59 Hydromorphone HCl (Dilaudid) 0.4 mg Q3H PRN IV .PAIN 6-10; Start 08/03/18 at 16:00; Stop 08/04/18 at 15:59 Diphenhydramine HCl (Benadryl) 25 mg Q6H PRN IV .ITCHING Last administered on 08/04/18at 12:16; Admin Dose 25 MG; Start 08/03/18 at 16:00; Stop 08/04/18 at 15:59 Ondansetron HCl (Zofran Inj) 4 mg Q6H PRN IV .NAUSEA/VOMITING Last administered on 08/04/18at 08:35; Admin Dose 4 MG; Start 08/03/18 at 16:00; Stop 08/04/18 at 15:59 Zolpidem Tartrate (Ambien) 5 mg HS MAY REPEAT X 1 PRN PO .INSOMNIA; Start 08/03/18 at 16:00; Stop 08/04/18 at 15:59 Miscellaneous Information (* Miscellaneous Pharmacy Order) Duramorph: .2 mg Epidu... GIVEN XX ; Start 08/03/18 at 16:00 Diagnostic Test (Pha) (Accu-Chek) 1 ea 02 XX ; Start 08/04/18 at 02:00 Hydralazine HCl (Apresoline) 10 mg Q4H PRN IV sbp greater than 160; Start 08/03/18 at 16:30 Oxycodone/ Acetaminophen (Percocet (5/ 325)) 1 tab Q4H PRN PO .PAIN 4-6; Start 08/03/18 at 16:30 Oxycodone/ Acetaminophen (Percocet (5/ 325)) 2 tab Q4H PRN PO .PAIN 7-10; Start 08/03/18 at 16:30 Simethicone (Mylicon) 160 mg Q8H PRN PO .GAS; Start 08/03/18 at 16:30 Senna/Docusate Sodium (Senokot-S) 1 tab BID PO ; Start 08/03/18 at 21:00 Sodium Biphosphate/ Sodium Phosphate (Fleet Enema) 133 ml DAILY PRN [place] . CONSTIPATION; Start 08/03/18 at 16:30 Lanolin (Lanolin Hpa) 1 applic BEDSIDE MEDICATION PRN TOP .NIPPLES; Start 08/03/18 at 16:30 Diphtheria/ Tetanus/Acell Pertussis (Adacel) 0.5 ml ONCE ONCE IM* ; Start 08/06/18 at 09:00; Stop 08/06/18 at 09:01 Measles/Mumps/ Rubella Vaccine Live (Mmr Ii Vaccine) 0.5 ml ONCE ONCE SC* ; Start 08/06/18 at 09:00; Stop 08/06/18 at 09:01 Misoprostol (Cytotec) 1,000 mcg ONCE PRN [place] .VAGINAL BLEEDING; Start 08/03/18 at 16:30 Diagnostic Test (Pha) (Accu-Chek) 1 ea 2 HOURS AFTER MEALS XX ; Start 08/03/18 at 19:35 Insulin Glargine (Lantus) 4 units DAILY@2000 SC ; Start 08/03/18 at 20:00 Insulin Aspart (Novolog Insulin Pen) 2 unit WITH MEALS SC Last administered on 08/04/18at 08:32; Admin Dose 2 UNIT; Start 08/03/18 at 17:35 Insulin Aspart (Novolog Insulin Pen) NOVOLOG *MILD* ALGORITHM WITH MEALS BEDTIME SC ; Start 08/03/18 at 17:35 Diagnostic Test (Pha) (Accu-Chek) 1 ea Q4 XX ; Start 08/03/18 at 17:00; Stop 08/05/18 at 16:59 Miscellaneous Information 1 ea NOTE XX ; Start 08/03/18 at 17:00 Glucose (Glutose) 15 gm Q15M PRN PO DECREASED GLUCOSE; Start 08/03/18 at 17:00 Glucose (Glutose) 22.5 gm Q15M PRN PO DECREASED GLUCOSE; Start 08/03/18 at 17:00 Dextrose (D50w Syringe) 25 ml Q15M PRN IV DECREASED GLUCOSE; Start 08/03/18 at 17:00 Dextrose (D50w Syringe) 50 ml Q15M PRN IV DECREASED GLUCOSE; Start 08/03/18 at 17:00 Glucagon (Glucagen) 1 mg Q15M PRN IM DECREASED GLUCOSE; Start 08/03/18 at 17:00 Glucose (Glutose) 15 gm Q15M PRN BUCCAL DECREASED GLUCOSE; Start 08/03/18 at 17:00 Nifedipine (Procardia Xl) 30 mg BID PO ; Start 08/04/18 at 21:00 MANDEEP RIDER MD August 04, 2018 12:41
[2018-08-04] MEDS: PRENATAL VITAMIN PO SCH (13:55)
--- NOTE | 2018-08-04 14:34 | PN ---
Date/Time of Note Date/Time of Note DATE: 08/04/18 TIME: 14:31 Objective Vitals Vital Signs Date Temp Pulse Resp B/P (MAP) Pulse Ox O2 O2 Flow FiO2 Time Delivery Rate 08/04/18 98.0 69 20 122/80 Room Air 08:04 (94) 08/04/18 94 03:59 Intake and Output 08/03/18 08/03/18 08/04/18 1515:00 23:00 07:00 IntakeIntake Total 100 ml 400 ml 1550 ml OutputOutput Total 761 ml 550 ml BalanceBalance 100 ml -361 ml 1000 ml Results Result Diagram: 08/04/18 0559 08/04/18 0559 Medications Medications Current Medications Lactated Ringer's 1,000 ml @ 125 mls/hr Q8H IV Last administered on 08/04/18at 13:39; Admin Dose 125 MLS/HR; Start 08/03/18 at 11:59 Magnesium Sulfate 500 ml @ 50 mls/hr Q10H IV Last administered on 08/04/18at 09:28; Admin Dose 50 MLS/HR; Start 08/03/18 at 11:59; Stop 08/04/18 at 15:15 Prenat Multivit/ [place]/Iron/Folic Ac () 1 tab DAILY PO ; Start 08/04/18 at 09:00 Ferrous Sulfate (Ferrous Sulfate (Ec)) 325 mg DAILY PO Last administered on 08/04/18at 08:29; Admin Dose 325 MG; Start 08/04/18 at 09:00 Docusate Sodium (Colace) 100 mg DAILY PO Last administered on 08/04/18at 08:29; Admin Dose 100 MG; Start 08/04/18 at 09:00 Labetalol HCl (Normodyne) 200 mg BID PO Last administered on 08/04/18at 08:29; Admin Dose 200 MG; Start 08/03/18 at 12:00 Labetalol HCl (Labetalol) 40 mg ONCE PRN IV ELEVATED BLOOD PRESSURE; Start 08/03/18 at 14:00 Labetalol HCl (Labetalol) 80 mg ONCE PRN IV ELEVATED BLOOD PRESSURE; Start 08/03/18 at 14:00 Hydralazine HCl (Apresoline) 10 mg ONCE PRN IV ELEVATED BLOOD PRESSURE; Start 08/03/18 at 14:00 Oxytocin/Lactated Ringer's 500 ml @ 0 mls/hr ONCE PRN IV .VAGINAL BLEEDING; Start 08/03/18 at 14:00 Methylergonovine Maleate (Methergine) 0.2 mg ONCE PRN IM .VAGINAL BLEEDING; Start 08/03/18 at 14:00 Carboprost Tromethamine (Hemabate) 250 mcg ONCE PRN IM .VAGINAL BLEEDING; Start 08/03/18 at 14:00 Naloxone HCl (Narcan) 0.1 mg Q2M PRN IV .RESP RATE; Start 08/03/18 at 16:00; St op 08/04/18 at 15:59 Ketorolac Tromethamine (Toradol) 30 mg Q6H PRN IV PAIN AFTER CSECTION Last administered on 08/03/18at 22:55; Admin Dose 30 MG; Start 08/03/18 at 16:00; Stop 08/04/18 at 15:59 Hydromorphone HCl (Dilaudid) 0.2 mg Q3H PRN IV .PAIN 1-5; Start 08/03/18 at 16:00; Stop 08/04/18 at 15:59 Hydromorphone HCl (Dilaudid) 0.4 mg Q3H PRN IV .PAIN 6-10; Start 08/03/18 at 16:00; Stop 08/04/18 at 15:59 Diphenhydramine HCl (Benadryl) 25 mg Q6H PRN IV .ITCHING Last administered on 08/04/18at 12:16; Admin Dose 25 MG; Start 08/03/18 at 16:00; Stop 08/04/18 at 15:59 Ondansetron HCl (Zofran Inj) 4 mg Q6H PRN IV .NAUSEA/VOMITING Last administered on 08/04/18at 08:35; Admin Dose 4 MG; Start 08/03/18 at 16:00; Stop 08/04/18 at 15:59 Zolpidem Tartrate (Ambien) 5 mg HS MAY REPEAT X 1 PRN PO .INSOMNIA; Start 08/03/18 at 16:00; Stop 08/04/18 at 15:59 Diagnostic Test (Pha) (Accu-Chek) 1 ea 02 XX ; Start 08/04/18 at 02:00 Hydralazine HCl (Apresoline) 10 mg Q4H PRN IV sbp greater than 160; Start 08/03/18 at 16:30 Oxycodone/ Acetaminophen (Percocet (5/ 325)) 1 tab Q4H PRN PO .PAIN 4-6; Start 08/03/18 at 16:30 Oxycodone/ Acetaminophen (Percocet (5/ 325)) 2 tab Q4H PRN PO .PAIN 7-10; Start 08/03/18 at 16:30 Simethicone (Mylicon) 160 mg Q8H PRN PO .GAS; Start 08/03/18 at 16:30 Senna/Docusate Sodium (Senokot-S) 1 tab BID PO ; Start 08/03/18 at 21:00 Sodium Biphosphate/ Sodium Phosphate (Fleet Enema) 133 ml DAILY PRN [place] .CONSTIPATION; Start 08/03/18 at 16:30 Lanolin (Lanolin Hpa) 1 applic BEDSIDE MEDICATION PRN [place] .NIPPLES; Start 08/03/18 at 16:30 Diphtheria/ Tetanus/Acell Pertussis (Adacel) 0.5 ml ONCE ONCE IM* ; Start 08/06/18 at 09:00; Stop 08/06/18 at 09:01 Measles/Mumps/ Rubella Vaccine Live (Mmr Ii Vaccine) 0.5 ml ONCE ONCE SC* ; Start 08/06/18 at 09:00; Stop 08/06/18 at 09:01 Misoprostol (Cytotec) 1,000 mcg ONCE PRN [place] .VAGINAL BLEEDING; Start 08/03/18 at 16:30 Diagnostic Test (Pha) (Accu-Chek) 1 ea 2 HOURS AFTER MEALS XX ; Start 08/03/18 at 19:35 Insulin Glargine (Lantus) 4 units DAILY@2000 SC ; Start 08/03/18 at 20:00 Insulin Aspart (Novolog Insulin Pen) 2 unit WITH MEALS SC Last administered on 08/04/18at 12:50; Admin Dose 2 UNIT; Start 08/03/18 at 17:35 Insulin Aspart (Novolog Insulin Pen) NOVOLOG *MILD* ALGORITHM WITH MEALS BEDTIME SC Last administered on 08/04/18at 12:51; Admin Dose 1 UNIT; Start 08/03/18 at 17:35 Diagnostic Test (Pha) (Accu-Chek) 1 ea Q4 XX ; Start 08/03/18 at 17:00; Stop 08/05/18 at 16:59 Miscellaneous Information 1 ea NOTE XX ; Start 08/03/18 at 17:00 Glucose (Glutose) 15 gm Q15M PRN PO DECREASED GLUCOSE; Start 08/03/18 at 17:00 Glucose (Glutose) 22.5 gm Q15M PRN PO DECREASED GLUCOSE; Start 08/03/18 at 17:00 Dextrose (D50w Syringe) 25 ml Q15M PRN IV DECREASED GLUCOSE; Start 08/03/18 at 17:00 Dextrose (D50w Syringe) 50 ml Q15M PRN IV DECREASED GLUCOSE; Start 08/03/18 at 17:00 Glucagon (Glucagen) 1 mg Q15M PRN IM DECREASED GLUCOSE; Start 08/03/18 at 17:00 Glucose (Glutose) 15 gm Q15M PRN BUCCAL DECREASED GLUCOSE; Start 08/03/18 at 17:00 Nifedipine (Procardia Xl) 30 mg BID PO ; Start 08/04/18 at 21:00 VTE Prophylaxis Risk score (from Ns)>0 risk: 1 SCD applied (from [facility]): Yes Lines/Catheters IV Catheter Type: Edouard in Place: No Assessment/Plan Hospital Course Subjective Patient doing well, no acute complaints, no BP issues overnight Objective Physical exam General: Patient is laying in bed and answers questions appropriately Mentation: Patient is alert and oriented 4, Head: Normocephalic atraumatic Eyes: EOMI, pupils reactive to light Neck: Supple, nontender, midline Respiratory: Clear to auscultation bilaterally Cardiovascular: regular rate, no obvious murmurs Gastrointestinal: Minimally tender to palpation, bowel sounds heard. Neurological: Moves all extremities spontaneously Skin: Surgical site bandaged, CDI Assessment and plan Preeclampsia with hellp syndrome -Betamethasone and magnesium per OB -Titrate down nifedipine as tolerated -OB managed with delivery -Monitor very closely Diabetes mellitus -Insulin at home -Varnishing Unit Tool Setter is on board Hypertension -Continue home medications and adjust medications while inpatient until danger. Titrate down nifedipine as tolerated. Thrombocytopenia -Likely secondary to above syndrome, transfuse as needed Elevated liver enzymes -Likely secondary to above syndrome, monitor closely, repeat liver labs tomorrow Disposition -Follow along with OB and psychiatric assistant, monitor blood pressure, blood sugars and magnesium level closely. SABRINA WELLS August 04, 2018 14:34
[2018-08-04] MEDS: INSULIN GLARGINE [LANTus] (100 UNITS/ML) SYG SC SCH (20:41)
[2018-08-04] MEDS ORDERED: NIFEdipine (XL) 30 MG TAB PO SCH (21:00)
[2018-08-05] MEDS: ACCU-CHEK XX SCH ×8 (01:00→20:05)
[2018-08-05 03:40] VITALS: BP 109/61; PULSE 77; RESP 19
[2018-08-05] MEDS: LACTATED RINGER'S 1,000 ML IV SCH ×3 (03:59→22:52)
[2018-08-05] MEDS: INSULIN ASPART [NOVOLOG] 3 ML PEN SC SCH ×7 (08:05→21:00)
--- NOTE | 2018-08-05 08:15 | QN ---
Documentation Comment s/p c/s Subjective: no complaint Objective: Afebrile, VSS NAD A&O Abdomen: soft, appropriate tender Incision: no sign of bleeding/infection mild lochia Extremity: 1+ edema bilaterally Assessment: S/p C/S. POD # 2 HELLP syndrome. BPs normal now. all BP meds were held by RN due to low BPs DM. Steroid effect will go away soon Recovering Well. it seems like she turned the corner Plan: current care SETH LAUREANO MD August 05, 2018 08:15
[2018-08-05 08:30] VITALS: BP 123/77; PULSE 74; RESP 18
[2018-08-05] MEDS: SENNA/DOCUSATE NA (8.6MG/50MG) TAB PO SCH ×2 (09:12→21:33)
[2018-08-05] MEDS: DOCUSATE SODIUM 100 MG CAP PO SCH (09:12)
[2018-08-05] MEDS: LABETALOL 100 MG TAB PO SCH ×2 (09:12→21:34)
[2018-08-05] MEDS: FERROUS SULFATE (EC) 325 MG TAB PO SCH (09:12)
[2018-08-05] MEDS: PRENATAL VITAMIN PO SCH (09:12)
--- NOTE | 2018-08-05 11:52 | PN ---
Date/Time of Note Date/Time of Note DATE: 08/05/18 TIME: 11:50 Objective Vitals Vital Signs Date Temp Pulse Resp B/P (MAP) Pulse Ox O2 O2 Flow FiO2 Time Delivery Rate 08/05/18 98.3 74 18 123/77 Room Air 08:30 (92) 08/04/18 93 14:00 Intake and Output 08/04/18 08/04/18 08/05/18 1515:00 23:00 07:00 IntakeIntake Total 1400 ml OutputOutput Total 525 ml 1400 ml BalanceBalance 875 ml -1400 ml Results Result Diagram: 08/05/1880408/05/18 08 Medications Medications Current Medications Lactated Ringer's 1,000 ml @ 125 mls/hr Q8H IV Last administered on 08/04/18at 13:39; Admin Dose 125 MLS/HR; Start 08/03/18 at 11:59 Prenat Multivit/ [place]/Iron/Folic Ac () 1 tab DAILY PO Last administered on 08/05/18at 09:12; Admin Dose 1 TAB; Start 08/04/18 at 09:00 Ferrous Sulfate (Ferrous Sulfate (Ec)) 325 mg DAILY PO Last administered on 08/05/18at 09:12; Admin Dose 325 MG; Start 08/04/18 at 09:00 Docusate Sodium (Colace) 100 mg DAILY PO Last administered on 08/05/18at 09:12; Admin Dose 100 MG; Start 08/04/18 at 09:00 Labetalol HCl (Labetalol) 40 mg ONCE PRN IV ELEVATED BLOOD PRESSURE; Start 08/03/18 at 14:00 Labetalol HCl (Labetalol) 80 mg ONCE PRN IV ELEVATED BLOOD PRESSURE; Start 08/03/18 at 14:00 Hydralazine HCl (Apresoline) 10 mg ONCE PRN IV ELEVATED BLOOD PRESSURE; Start 08/03/18 at 14:00 Oxytocin/Lactated Ringer's 500 ml @ 0 mls/hr ONCE PRN IV .VAGINAL BLEEDING; Start 08/03/18 at 14:00 Methylergonovine Maleate (Methergine) 0.2 mg ONCE PRN IM .VAGINAL BLEEDING; Start 08/03/18 at 14:00 Carboprost Tromethamine (Hemabate) 250 mcg ONCE PRN IM .VAGINAL BLEEDING; Start 08/03/18 at 14:00 Diagnostic Test (Pha) (Accu-Chek) 1 ea 02 XX ; Start 08/04/18 at 02:00 Hydralazine HCl (Apresoline) 10 mg Q4H PRN IV sbp greater than 160; Start 08/03/18 at 16:30 Oxycodone/ Acetaminophen (Percocet (5/ 325)) 1 tab Q4H PRN PO .PAIN 4-6; Start 08/03/18 at 16:30 Oxycodone/ Acetaminophen (Percocet (5/ 325)) 2 tab Q4H PRN PO .PAIN 7-10; Start 08/03/18 at 16:30 Simethicone (Mylicon) 160 mg Q8H PRN PO .GAS; Start 08/03/18 at 16:30 Senna/Docusate Sodium (Senokot-S) 1 tab BID PO Last administered on 08/05/18at 09:12; Admin Dose 1 TAB; Start 08/03/18 at 21:00 Sodium Biphosphate/ Sodium Phosphate (Fleet Enema) 133 ml DAILY PRN [place] .CONSTIPATION; Start 08/03/18 at 16:30 Lanolin (Lanolin Hpa) 1 applic BEDSIDE MEDICATION PRN TOP .NIPPLES; Start 08/03/18 at 16:30 Diphtheria/ Tetanus/Acell Pertussis (Adacel) 0.5 ml ONCE ONCE IM* ; Start 08/06/18 at 09:00; Stop 08/06/18 at 09:01 Measles/Mumps/ Rubella Vaccine Live (Mmr Ii Vaccine) 0.5 ml ONCE ONCE SC* ; Start 08/06/18 at 09:00; Stop 08/06/18 at 09:01 Misoprostol (Cytotec) 1,000 mcg ONCE PRN [place] .VAGINAL BLEEDING; Start 08/03/18 at 16:30 Diagnostic Test (Pha) (Accu-Chek) 1 ea 2 HOURS AFTER MEALS XX Last administered on 08/05/18at 10:05; Admin Dose 1 EA; Start 08/03/18 at 19:35 Insulin Glargine (Lantus) 4 units DAILY@2000 SC Last administered on 08/04/18at 20:41; Admin Dose 4 UNITS; Start 08/03/18 at 20:00 Insulin Aspart (Novolog Insulin Pen) 2 unit WITH MEALS SC Last administered on 08/05/18at 09:04; Admin Dose 2 UNIT; Start 08/03/18 at 17:35 Insulin Aspart (Novolog Insulin Pen) NOVOLOG *MILD* ALGORITHM WITH MEALS BEDTIME SC Last administered on 08/04/18at 21:52; Admin Dose 1 UNIT; Start 08/03/18 at 17:35 Diagnostic Test (Pha) (Accu-Chek) 1 ea Q4 XX ; Start 08/03/18 at 17:00; Stop 08/05/18 at 16:59 Miscellaneous Information 1 ea NOTE XX ; Start 08/03/18 at 17:00 Glucose (Glutose) 15 gm Q15M PRN PO DECREASED GLUCOSE; Start 08/03/18 at 17:00 Glucose (Glutose) 22.5 gm Q15M PRN PO DECREASED GLUCOSE; Start 08/03/18 at 17:00 Dextrose (D50w Syringe) 25 ml Q15M PRN IV DECREASED GLUCOSE; Start 08/03/18 at 17:00 Dextrose (D50w Syringe) 50 ml Q15M PRN IV DECREASED GLUCOSE; Start 08/03/18 at 17:00 Glucagon (Glucagen) 1 mg Q15M PRN IM DECREASED GLUCOSE; Start 08/03/18 at 17:00 Glucose (Glutose) 15 gm Q15M PRN BUCCAL DECREASED GLUCOSE; Start 08/03/18 at 17:00 Labetalol HCl (Normodyne) 100 mg BID PO Last administered on 08/05/18at 09:12; Admin Dose 100 MG; Start 08/05/18 at 09:00 VTE Prophylaxis Risk score (from Nsg)>0 risk: 3 SCD applied (from Nsg): No SCD contraindication: other Lines/Catheters IV Catheter Type: Edouard in Place: No Assessment/Plan Hospital Course Subjective Patient doing well, no acute complaints, no BP issues overnight Objective Physical exam General: Patient is laying in bed and answers questions appropriately Mentation: Patient is alert and oriented 4, Head: Normocephalic atraumatic Eyes: EOMI, pupils reactive to light Neck: Supple, nontender, midline Respiratory: Clear to auscultation bilaterally Cardiovascular: regular rate, no obvious murmurs Gastrointestinal: Minimally tender to palpation, bowel sounds heard. Neurological: Moves all extremities spontaneously Skin: Surgical site bandaged, CDI Assessment and plan Preeclampsia with hellp syndrome, resolved -Betamethasone and magnesium per OB given -Stop nifedipine -OB managed with delivery -Monitor very closely Diabetes mellitus -Insulin at home -Basket Sorter is on board Hypertension -Continue home medications and adjust medications Thrombocytopenia -Likely secondary to above syndrome, transfuse as needed Elevated liver enzymes -Likely secondary to above syndrome, monitor closely, repeat liver labs tomorrow Disposition -Follow along with OB and panelboard tank pumper, monitor blood pressure, blood sugars and magnesium level closely. -Blood pressure has been stable, continue to titrate off medications as possible. SABRINA WELLS August 05, 2018 11:52
--- NOTE | 2018-08-05 12:26 | OPPN ---
Date/Time of Note Date/Time of Note DATE: 08/05/18 TIME: 12:25 Anesthesia Follow up Anesthesia Follow up Last documented vital signs Vital Signs Date Temp Pulse Resp B/P (MAP) Pulse Ox O2 O2 Flow FiO2 Time Delivery Rate 08/05/18 98.3 74 18 123/77 Room Air 08:30 (92) 08/04/18 93 14:00 Comments satisfactory pain management with intrathecal duramorph without complications MUMTAZ DUTTON August 05, 2018 12:26
--- NOTE | 2018-08-05 13:28 | CONS ---
Assessment/Plan Assessment/Plan Problems: (1) Diabetes mellitus type 2 in obese Status: Chronic Comment: Patient's on multiple daily injection regimen with excellent glycemic control. Please note the effect of the steroid is largely worn off by this point in time. Continue with treatment as same. Please note we have chosen his insulin based regimen because the patient chooses to breast-feed. When she is done breast-feeding we can look at metformin with some other agents. (2) Essential hypertension Status: Chronic Comment: Adequate control. (3) HELLP syndrome (HELLP), third trimester Status: Acute Comment: Her chemistries returning to normal platelet count is now rising. Consultation Date/Type/Reason Admit Date/Time August 03, 2018 at 11:00 Initial Consult Date 08/03/18 Type of Consult Endocrinology Reason for Consultation Diabetes mellitus type 2; overweight; hypertension; hellp syndrome leading to early delivery urgently Requesting Provider: SETH LAUREANO MD Date/Time of Note DATE: 08/05/18 TIME: 13:26 24 HR Interval Summary Free Text/Dictation Patient reports she is feeling significantly better. No hypoglycemic reactions Constitutional: no complaints Detailed Summary Endocrine: no complaints Exam/Review of Systems Exam Vitals Vital Signs Date Temp Pulse Resp B/P (MAP) Pulse Ox O2 O2 Flow FiO2 Time Delivery Rate 08/05/18 98.3 74 18 123/77 Room Air 08:30 (92) 08/04/18 93 14:00 Intake and Output 08/04/18 08/04/18 08/05/18 1515:00 23:00 07:00 IntakeIntake Total 1400 ml OutputOutput Total 525 ml 1400 ml BalanceBalance 875 ml -1400 ml Constitutional: alert, oriented Respiratory: clear to auscultation, normal air movement Cardiovascular: regular rate and rhythm, nl pulses Gastrointestinal: soft, nl liver, spleen, non-tender Results Result Diagram: 08/05/18 0805 08/05/18 0805 Results 24hrs Laboratory Tests Test 08/04/18 15:12 08/04/18 18:23 08/04/18 20:34 08/04/18 21:42 Bedside Glucose 174 190 187 201 Test 08/05/18 02:15 08/05/18 08:05 08/05/18 08:06 08/05/18 08:51 Bedside Glucose 130 90 White Blood Count 17.6 #H Red Blood Count 3.69 L Hemoglobin 10.7 L Hematocrit 32.0 L Mean Corpuscular Volume 86.7 Mean Corpuscular 29.0 Hemoglobin Mean Corpuscular 33.4 Hemoglobin Concent Red Cell Distribution 14.6 H Width Platelet Count 106 #L Mean Platelet Volume 11.4 H Immature Granulocytes % 0.900 H Neutrophils % 78.6 H Lymphocytes % 14.0 L Monocytes % 6.2 Eosinophils % 0.1 Basophils % 0.2 Nucleated Red Blood 0.0 Cells % Immature Granulocytes # 0.160 H Neutrophils # 13.8 H Lymphocytes # 2.5 Monocytes # 1.1 H Eosinophils # 0.0 Basophils # 0.0 Nucleated Red Blood 0.0 Cells # Sodium Level 136 Potassium Level 4.1 Chloride Level 104 Carbon Dioxide Level 27 Anion Gap 5 Blood Urea Nitrogen 24 H Creatinine 0.58 Est Glomerular Filtrat > 60 Rate mL/min Glucose Level 93 # Calcium Level 7.4 L Total Bilirubin 0.1 L Direct Bilirubin 0.00 Indirect Bilirubin 0.1 Aspartate Amino 36 Transf (AST/SGOT) Alanine 52 Aminotransferase (ALT/SG PT) Alkaline Phosphatase 105 Total Protein 6.0 L Albumin 3.0 L Globulin 3.00 Albumin/Globulin Ratio 1.00 Hepatitis B Surface NEGATIVE Antigen Magnesium Level 3.2 #H Test 08/05/18 11:00 08/05/18 12:38 Bedside Glucose 119 102 Medications Medication Current Medications Lactated Ringer's 1,000 ml @ 125 mls/hr Q8H IV Last administered on 08/04/18at 13:39; Admin Dose 125 MLS/HR; Start 08/03/18 at 11:59 Prenat Multivit/ [place]/Iron/Folic Ac () 1 tab DAILY PO Last administered on 08/05/18at 09:12; Admin Dose 1 TAB; Start 08/04/18 at 09:00 Ferrous Sulfate (Ferrous Sulfate (Ec)) 325 mg DAILY PO Last administered on 08/05/18at 09:12; Admin Dose 325 MG; Start 08/04/18 at 09:00 Docusate Sodium (Colace) 100 mg DAILY PO Last administered on 08/05/18at 09:12; Admin Dose 100 MG; Start 08/04/18 at 09:00 Labetalol HCl (Labetalol) 40 mg ONCE PRN IV ELEVATED BLOOD PRESSURE; Start 08/03/18 at 14:00 Labetalol HCl (Labetalol) 80 mg ONCE PRN IV ELEVATED BLOOD PRESSURE; Start 08/03/18 at 14:00 Hydralazine HCl (Apresoline) 10 mg ONCE PRN IV ELEVATED BLOOD PRESSURE; Start 08/03/18 at 14:00 Oxytocin/Lactated Ringer's 500 ml @ 0 mls/hr ONCE PRN IV .VAGINAL BLEEDING; Start 08/03/18 at 14:00 Methylergonovine Maleate (Methergine) 0.2 mg ONCE PRN IM .VAGINAL BLEEDING; Start 08/03/18 at 14:00 Carboprost Tromethamine (Hemabate) 250 mcg ONCE PRN IM .VAGINAL BLEEDING; Start 08/03/18 at 14:00 Diagnostic Test (Pha) (Accu-Chek) 1 ea 02 XX ; Start 08/04/18 at 02:00 Hydralazine HCl (Apresoline) 10 mg Q4H PRN IV sbp greater than 160; Start 08/03/18 at 16:30 Oxycodone/ Acetaminophen (Percocet (5/ 325)) 1 tab Q4H PRN PO .PAIN 4-6; Start 08/03/18 at 16:30 Oxycodone/ Acetaminophen (Percocet (5/ 325)) 2 tab Q4H PRN PO .PAIN 7-10; Start 08/03/18 at 16:30 Simethicone (Mylicon) 160 mg Q8H PRN PO .GAS; Start 08/03/18 at 16:30 Senna/Docusate Sodium (Senokot-S) 1 tab BID PO Last administered on 08/05/18at 09:12; Admin Dose 1 TAB; Start 08/03/18 at 21:00 Sodium Biphosphate/ Sodium Phosphate (Fleet Enema) 133 ml DAILY PRN [place] .CONSTIPATION; Start 08/03/18 at 16:30 Lanolin (Lanolin Hpa) 1 applic BEDSIDE MEDICATION PRN TOP .NIPPLES; Start 08/03/18 at 16:30 Diphtheria/ Tetanus/Acell Pertussis (Adacel) 0.5 ml ONCE ONCE IM* ; Start 08/06/18 at 09:00; Stop 08/06/18 at 09:01 Measles/Mumps/ Rubella Vaccine Live (Mmr Ii Vaccine) 0.5 ml ONCE ONCE SC* ; Start 08/06/18 at 09:00; Stop 08/06/18 at 09:01 Misoprostol (Cytotec) 1,000 mcg ONCE PRN [place] .VAGINAL BLEEDING; Start 08/03/18 at 16:30 Diagnostic Test (Pha) (Accu-Chek) 1 ea 2 HOURS AFTER MEALS XX Last administ ered on 08/05/18at 10:05; Admin Dose 1 EA; Start 08/03/18 at 19:35 Insulin Glargine (Lantus) 4 units DAILY@2000 SC Last administered on 08/04/18 20:41; Admin Dose 4 UNITS; Start 08/03/18 at 20:00 Insulin Aspart (Novolog Insulin Pen) 2 unit WITH MEALS SC Last administered on 08/05/18 12:45; Admin Dose 2 UNIT; Start 08/03/18 at 17:35 Insulin Aspart (Novolog Insulin Pen) NOVOLOG *MILD* ALGORITHM WITH MEALS BEDTIME SC Last administered on 08/04/18 21:52; Admin Dose 1 UNIT; Start 08/03/18 at 17:35 Diagnostic Test (Pha) (Accu-Chek) 1 ea Q4 XX ; Start 08/03/18 at 17:00; Stop 08/05/18 at 16:59 Miscellaneous Information 1 ea NOTE XX ; Start 08/03/18 at 17:00 Glucose (Glutose) 15 gm Q15M PRN PO DECREASED GLUCOSE; Start 08/03/18 at 17:00 Glucose (Glutose) 22.5 gm Q15M PRN PO DECREASED GLUCOSE; Start 08/03/18 at 17:00 Dextrose (D50w Syringe) 25 ml Q15M PRN IV DECREASED GLUCOSE; Start 08/03/18 at 17:00 Dextrose (D50w Syringe) 50 ml Q15M PRN IV DECREASED GLUCOSE; Start 08/03/18 at 17:00 Glucagon (Glucagen) 1 mg Q15M PRN IM DECREASED GLUCOSE; Start 08/03/18 at 17:00 Glucose (Glutose) 15 gm Q15M PRN BUCCAL DECREASED GLUCOSE; Start 08/03/18 at 17:00 Labetalol HCl (Normodyne) 100 mg BID PO Last administered on 08/05/18 09:12; Admin Dose 100 MG; Start 08/05/18 at 09:00 MANDEEP RIDER MD August 05, 2018 13:28
[2018-08-05 16:00] VITALS: BP 135/84; PULSE 78; RESP 19
[2018-08-05 19:30] VITALS: BP 138/89; PULSE 84; RESP 19
[2018-08-05] MEDS: INSULIN GLARGINE [LANTus] (100 UNITS/ML) SYG SC SCH (20:14)
[2018-08-06] VITALS (7 sets, daily range): BP systolic 131–158; BP diastolic 75–96; PULSE 66–85; RESP 18–19
[2018-08-06] MEDS: SILVER SULFADIAZINE 1% 25 GM CR TOP SCH ×2 (00:52→10:25)
[2018-08-06] MEDS: ACCU-CHEK XX SCH ×4 (02:00→20:05)
[2018-08-06] MEDS ORDERED: NIFEdipine (XL) 30 MG TAB PO SCH (05:00)
[2018-08-06] MEDS: NIFEdipine (XL) 30 MG TAB PO SCH (05:16)
[2018-08-06] MEDS: SENNA/DOCUSATE NA (8.6MG/50MG) TAB PO SCH ×2 (08:39→21:15)
[2018-08-06] MEDS: FERROUS SULFATE (EC) 325 MG TAB PO SCH (08:39)
[2018-08-06] MEDS: PRENATAL VITAMIN PO SCH (08:39)
[2018-08-06] MEDS: DOCUSATE SODIUM 100 MG CAP PO SCH (08:39)
[2018-08-06] MEDS: LABETALOL 100 MG TAB PO SCH (08:40)
[2018-08-06] MEDS: INSULIN ASPART [NOVOLOG] 3 ML PEN SC SCH ×7 (08:42→20:35)
--- NOTE | 2018-08-06 08:43 | CONS ---
Assessment/Plan Assessment/Plan Problems: (1) Diabetes mellitus type 2 in obese Status: Chronic Comment: Excellent glycemic control at the current time in a controlled environment with controlled dietary access. Anticipate she will be able to do quite well. Weight loss is quite possible she will be able to come off of most of her therapies (2) Essential hypertension Status: Chronic Comment: Adequate control at this time. (3) HELLP syndrome (HELLP), third trimester Status: Acute Comment: Platelet counts are coming back to normal. Consultation Date/Type/Reason Admit Date/Time August 03, 2018 at 11:00 Initial Consult Date 08/03/18 Type of Consult Endocrinology Reason for Consultation Diabetes mellitus type 2 predating ; hypertension predating ; overweight; status post urgent delivery secondary to hellp syndrome Requesting Provider: SETH LAUREANO MD Date/Time of Note DATE: 08/06/18 TIME: 08:41 24 HR Interval Summary Free Text/Dictation Patient is feeling much better sitting up and eating breakfast. Constitutional: no complaints Detailed Summary Gastrointestinal: no complaints Endocrine: no complaints Exam/Review of Systems Exam Vitals Vital Signs Date Temp Pulse Resp B/P (MAP) Pulse Ox O2 O2 Flow FiO2 Time Delivery Rate 08/06/18 66 149/86 06:10 (107) 08/06/18 98.3 19 Room Air 03:30 08/04/18 93 14:00 Intake and Output 08/05/18 08/05/18 08/06/18 1515:00 23:00 07:00 IntakeIntake Total 870 ml BalanceBalance 870 ml Constitutional: alert, oriented Respiratory: clear to auscultation, normal air movement Cardiovascular: regular rate and rhythm, nl pulses Gastrointestinal: soft, nl liver, spleen, non-tender Results Result Diagram: 08/06/1852908/06/18529 Results 24hrs Laboratory Tests Test 08/05/18 08:51 08/05/18 11:00 08/05/18 12:38 08/05/18 14:52 Bedside Glucose 90 119 102 127 Test 08/05/18 18:00 08/05/18 20:09 08/05/18 22:21 08/06/18 05:30 Bedside Glucose 102 147 140 White Blood Count 14.1 H Red Blood Count 3.91 L Hemoglobin 11.3 L Hematocrit 34.8 L Mean Corpuscular 89.0 Volume Mean Corpuscular 28.9 L Hemoglobin Mean Corpuscular 32.5 Hemoglobin Concent Red Cell Distribution 15.1 H Width Platelet Count 126 L Mean Platelet Volume 11.1 H Immature Granulocytes 1.100 H % Neutrophils % 68.3 Lymphocytes % 21.0 Monocytes % 8.4 Eosinophils % 0.8 Basophils % 0.4 Nucleated Red Blood 0.0 Cells % Immature Granulocytes 0.150 H # Neutrophils # 9.7 H Lymphocytes # 3.0 H Monocytes # 1.2 H Eosinophils # 0.1 Basophils # 0.1 Nucleated Red Blood 0.0 Cells # Sodium Level 137 Potassium Level 4.8 Chloride Level 105 Carbon Dioxide Level 28 Anion Gap 4 L Blood Urea Nitrogen 17 Creatinine 0.58 Est Glomerular Filtrat > 60 Rate mL/min Glucose Level 77 Calcium Level 8.4 Phosphorus Level 3.5 Magnesium Level 2.0 # Test 08/06/18 08:17 Bedside Glucose 70 Medications Medication Current Medications Prenat Multivit/ [place]/Iron/Folic Ac () 1 tab DAILY PO Last administered on 08/05/18at 09:12; Admin Dose 1 TAB; Start 08/04/18 at 09:00 Ferrous Sulfate (Ferrous Sulfate (Ec)) 325 mg DAILY PO Last administered on 08/05/18at 09:12; Admin Dose 325 MG; Start 08/04/18 at 09:00 Docusate Sodium (Colace) 100 mg DAILY PO Last administered on 08/05/18at 09:12; Admin Dose 100 MG; Start 08/04/18 at 09:00 Labetalol HCl (Labetalol) 40 mg ONCE PRN IV ELEVATED BLOOD PRESSURE; Start 08/03/18 at 14:00 Labetalol HCl (Labetalol) 80 mg ONCE PRN IV ELEVATED BLOOD PRESSURE; Start 08/03/18 at 14:00 Hydralazine HCl (Apresoline) 10 mg ONCE PRN IV ELEVATED BLOOD PRESSURE; Start 08/03/18 at 14:00 Oxytocin/Lactated Ringer's 500 ml @ 0 mls/hr ONCE PRN IV .VAGINAL BLEEDING; Start 08/03/18 at 14:00 Methylergonovine Maleate (Methergine) 0.2 mg ONCE PRN IM .VAGINAL BLEEDING; Start 08/03/18 at 14:00 Carboprost Tromethamine (Hemabate) 250 mcg ONCE PRN IM .VAGINAL BLEEDING; Start 08/03/18 at 14:00 Diagnostic Test (Pha) (Accu-Chek) 1 ea 02 XX ; Start 08/04/18 at 02:00 Hydralazine HCl (Apresoline) 10 mg Q4H PRN IV sbp greater than 160; Start 08/03/18 at 16:30 Oxycodone/ Acetaminophen (Percocet (5/ 325)) 1 tab Q4H PRN PO .PAIN 4-6; Start 08/03/18 at 16:30 Oxycodone/ Acetaminophen (Percocet (5/ 325)) 2 tab Q4H PRN PO .PAIN 7-10; Start 08/03/18 at 16:30 Simethicone (Mylicon) 160 mg Q8H PRN PO .GAS; Start 08/03/18 at 16:30 Senna/Docusate Sodium (Senokot-S) 1 tab BID PO Last administered on 08/05/18at 21:33; Admin Dose 1 TAB; Start 08/03/18 at 21:00 Sodium Biphosphate/ Sodium Phosphate (Fleet Enema) 133 ml DAILY PRN [place] .CONSTIPATION; Start 08/03/18 at 16:30 Lanolin (Lanolin Hpa) 1 applic BEDSIDE MEDICATION PRN [place] .NIPPLES; Start 08/03/18 at 16:30 Diphtheria/ Tetanus/Acell Pertussis (Adacel) 0.5 ml ONCE ONCE IM* ; Start 08/06/18 at 09:00; Stop 08/06/18 at 09:01 Measles/Mumps/ Rubella Vaccine Live (Mmr Ii Vaccine) 0.5 ml ONCE ONCE SC* ; Start 08/06/18 at 09:00; Stop 08/06/18 at 09:01 Misoprostol (Cytotec) 1,000 mcg ONCE PRN [place] .VAGINAL BLEEDING; Start 08/03/18 at 16:30 Diagnostic Test (Pha) (Accu-Chek) 1 ea 2 HOURS AFTER MEALS XX Last administered on 08/05/18at 10:05; Admin Dose 1 EA; Start 08/03/18 at 19:35 Insulin Glargine (Lantus) 4 units DAILY@2000 SC Last administered on 08/05/18at 20:14; Admin Dose 4 UNITS; Start 08/03/18 at 20:00 Insulin Aspart (Novolog Insulin Pen) 2 unit WITH MEALS SC Last administered on 08/05/18at 18:03; Admin Dose 2 UNIT; Start 08/03/18 at 17:35 Insulin Aspart (Novolog Insulin Pen) NOVOLOG *MILD* ALGORITHM WITH MEALS BEDTIME SC Last administered on 08/04/18at 21:52; Admin Dose 1 UNIT; Start 08/03/18 at 17:35 Miscellaneous Information 1 ea NOTE XX ; Start 08/03/18 at 17:00 Glucose (Glutose) 15 gm Q15M PRN PO DECREASED GLUCOSE; Start 08/03/18 at 17:00 Glucose (Glutose) 22.5 gm Q15M PRN PO DECREASED GLUCOSE; Start 08/03/18 at 17:00 Dextrose (D50w Syringe) 25 ml Q15M PRN IV DECREASED GLUCOSE; Start 08/03/18 at 17:00 Dextrose (D50w Syringe) 50 ml Q15M PRN IV DECREASED GLUCOSE; Start 08/03/18 at 17:00 Glucagon (Glucagen) 1 mg Q15M PRN IM DECREASED GLUCOSE; Start 08/03/18 at 17:00 Glucose (Glutose) 15 gm Q15M PRN BUCCAL DECREASED GLUCOSE; Start 08/03/18 at 17:00 Labetalol HCl (Normodyne) 100 mg BID PO Last administered on 08/05/18at 21:34; Admin Dose 100 MG; Start 08/05/18 at 09:00 Silver Sulfadiazine (Thermazene 1% 25 Gm) 1 applic BID TOP Last administered on 08/06/18at 00:52; Admin Dose 1 APPLIC; Start 08/05/18 at 23:00 Nifedipine (Procardia Xl) 30 mg DAILY PO Last administered on 08/06/18at 05:16; Admin Dose 30 MG; Start 08/06/18 at 05:00 MANDEEP RIDER MD August 06, 2018 08:43
[2018-08-06] MEDS ORDERED: DIPHTH/TET/ACEL PERTUSS (ADULT) 0.5 ML VIAL IM* ONE (09:00)
[2018-08-06] MEDS ORDERED: MEASLES,MUMPS,RUBELLA VACCINE INJ SC* ONE (09:00)
[2018-08-06] MEDS: OXYCODONE/ACETAMINOPHEN (5/325) TAB PO PRN (10:25)
--- NOTE | 2018-08-06 11:28 | PN ---
Date/Time of Note Date/Time of Note DATE: 08/06/18 TIME: 11:26 Objective Vitals Vital Signs Date Temp Pulse Resp B/P (MAP) Pulse Ox O2 O2 Flow FiO2 Time Delivery Rate 08/06/18 98.5 73 18 131/75 Room Air 08:30 (93) 08/04/18 93 14:00 Intake and Output 08/05/18 08/05/18 08/06/18 1515:00 23:00 07:00 IntakeIntake Total 870 ml BalanceBalance 870 ml Results Result Diagram: 08/06/1852908/06/18529 Medications Medications Current Medications Prenat Multivit/ [place]/Iron/Folic Ac () 1 tab DAILY PO Last administered on 08/06/18at 08:39; Admin Dose 1 TAB; Start 08/04/18 at 09:00 Ferrous Sulfate (Ferrous Sulfate (Ec)) 325 mg DAILY PO Last administered on 08/06/18at 08:39; Admin Dose 325 MG; Start 08/04/18 at 09:00 Docusate Sodium (Colace) 100 mg DAILY PO Last administered on 08/06/18at 08:39; Admin Dose 100 MG; Start 08/04/18 at 09:00 Labetalol HCl (Labetalol) 40 mg ONCE PRN IV ELEVATED BLOOD PRESSURE; Start 08/03/18 at 14:00 Labetalol HCl (Labetalol) 80 mg ONCE PRN IV ELEVATED BLOOD PRESSURE; Start 08/03/18 at 14:00 Hydralazine HCl (Apresoline) 10 mg ONCE PRN IV ELEVATED BLOOD PRESSURE; Start 08/03/18 at 14:00 Oxytocin/Lactated Ringer's 500 ml @ 0 mls/hr ONCE PRN IV .VAGINAL BLEEDING; Start 08/03/18 at 14:00 Methylergonovine Maleate (Methergine) 0.2 mg ONCE PRN IM .VAGINAL BLEEDING; Start 08/03/18 at 14:00 Carboprost Tromethamine (Hemabate) 250 mcg ONCE PRN IM .VAGINAL BLEEDING; Start 08/03/18 at 14:00 Diagnostic Test (Pha) (Accu-Chek) 1 ea 02 XX ; Start 08/04/18 at 02:00 Hydralazine HCl (Apresoline) 10 mg Q4H PRN IV sbp greater than 160; Start 08/03/18 at 16:30 Oxycodone/ Acetaminophen (Percocet (5/ 325)) 1 tab Q4H PRN PO .PAIN 4-6 Last administered on 08/06/18at 10:25; Admin Dose 1 TAB; Start 08/03/18 at 16:30 Oxycodone/ Acetaminophen (Percocet (5/ 325)) 2 tab Q4H PRN PO .PAIN 7-10; Start 08/03/18 at 16:30 Simethicone (Mylicon) 160 mg Q8H PRN PO .GAS; Start 08/03/18 at 16:30 Senna/Docusate Sodium (Senokot-S) 1 tab BID PO Last administered on 08/06/18 08:39; Admin Dose 1 TAB; Start 08/03/18 at 21:00 Sodium Biphosphate/ Sodium Phosphate (Fleet Enema) 133 ml DAILY PRN [place] .CONSTIPATION; Start 08/03/18 at 16:30 Lanolin (Lanolin Hpa) 1 applic BEDSIDE MEDICATION PRN [place] .NIPPLES; Start 08/03/18 at 16:30 Misoprostol (Cytotec) 1,000 mcg ONCE PRN [place] .VAGINAL BLEEDING; Start 08/03/18 at 16:30 Diagnostic Test (Pha) (Accu-Chek) 1 ea 2 HOURS AFTER MEALS XX Last administered on 08/06/18 10:43; Admin Dose 1 EA; Start 08/03/18 at 19:35 Insulin Glargine (Lantus) 4 units DAILY@2000 SC Last administered on 08/05/18 20:14; Admin Dose 4 UNITS; Start 08/03/18 at 20:00 Insulin Aspart (Novolog Insulin Pen) 2 unit WITH MEALS SC Last administered on 08/06/18 08:42; Admin Dose 2 UNIT; Start 08/03/18 at 17:35 Insulin Aspart (Novolog Insulin Pen) NOVOLOG *MILD* ALGORITHM WITH MEALS BEDTIME SC Last administered on 08/04/18 21:52; Admin Dose 1 UNIT; Start 08/03/18 at 17:35 Miscellaneous Information 1 ea NOTE XX ; Start 08/03/18 at 17:00 Glucose (Glutose) 15 gm Q15M PRN PO DECREASED GLUCOSE; Start 08/03/18 at 17:00 Glucose (Glutose) 22.5 gm Q15M PRN PO DECREASED GLUCOSE; Start 08/03/18 at 17:00 Dextrose (D50w Syringe) 25 ml Q15M PRN IV DECREASED GLUCOSE; Start 08/03/18 at 17:00 Dextrose (D50w Syringe) 50 ml Q15M PRN IV DECREASED GLUCOSE; Start 08/03/18 at 17:00 Glucagon (Glucagen) 1 mg Q15M PRN IM DECREASED GLUCOSE; Start 08/03/18 at 17:00 Glucose (Glutose) 15 gm Q15M PRN BUCCAL DECREASED GLUCOSE; Start 08/03/18 at 17:00 Silver Sulfadiazine (Thermazene 1% 25 Gm) 1 applic BID TOP Last administered on 08/06/18at 10:25; Admin Dose 1 APPLIC; Start 08/05/18 at 23:00 Nifedipine (Procardia Xl) 30 mg DAILY PO Last administered on 08/06/18at 05:16; Admin Dose 30 MG; Start 08/06/18 at 05:00 VTE Prophylaxis Risk score (from Ns)>0 risk: 2 SCD applied (from Ns): No SCD contraindication: other Lines/Catheters IV Catheter Type: [place] in Place: No Assessment/Plan Hospital Course Subjective Patient doing well, no acute complaints, mild elevated BP overnight Objective Physical exam General: Patient is laying in bed and answers questions appropriately Mentation: Patient is alert and oriented 4, Head: Normocephalic atraumatic Eyes: EOMI, pupils reactive to light Neck: Supple, nontender, midline Respiratory: Clear to auscultation bilaterally Cardiovascular: regular rate, no obvious murmurs Gastrointestinal: Minimally tender to palpation, bowel sounds heard. Neurological: Moves all extremities spontaneously Skin: Surgical site bandaged, CDI Assessment and plan Preeclampsia with hellp syndrome, resolved -Betamethasone and magnesium per OB given -OB managed with delivery -Monitor very closely Diabetes mellitus -Insulin at home -Sewage Reticulation Drafting Officer is on board Hypertension -Continue home medications and adjust medications -BP elevated, nifedipine XL started per OB, this is a good medication and has low profile of side effects, stop labetalol as likely easier to titrate up on nifedipine XL instead of taking 2 different medications. I recommend discharge with nifedipine XL at appropriate titrated dose. Thrombocytopenia -Likely secondary to above syndrome, transfuse as needed Elevated liver enzymes -Likely secondary to above syndrome, monitor closely, repeat liver labs tomorrow Disposition -Follow along with OB and qc analyst, monitor blood pressure, blood sugars and magnesium level closely. -Titrate up nifedipine XL as needed, Ensure 24 hours of being normotensive before discharge. SABRINA WELLS August 06, 2018 11:28
--- NOTE | 2018-08-06 15:30 | QN ---
Documentation Comment S no c/o any SOB or chest pain or headache had b.m tolerating diet well ambulating well O BP was ok on 08/05, but some how procardia was stopped and BP went up to 158/91 .150/92 restarted procardia XL early this am afebrile abdomen soft wound dry but bullae due to tape on Rt latera aspect ruptured on mild erythematous change( wound care spec care) lochia min calf neg for tenderness A stable S/P Prim C/S for severe PIH P observe today CARMEN GARCIA MD August 06, 2018 15:30
[2018-08-06] MEDS: INSULIN GLARGINE [LANTus] (100 UNITS/ML) SYG SC SCH (21:13)
[2018-08-07] VITALS (7 sets, daily range): BP systolic 138–161; BP diastolic 84–96; PULSE 69–96; RESP 16–20
[2018-08-07] MEDS: ACCU-CHEK XX SCH ×3 (02:00→14:29)
[2018-08-07] MEDS: INSULIN ASPART [NOVOLOG] 3 ML PEN SC SCH ×7 (08:05→21:00)
[2018-08-07] MEDS: PRENATAL VITAMIN PO SCH (08:43)
[2018-08-07] MEDS: FERROUS SULFATE (EC) 325 MG TAB PO SCH (08:43)
[2018-08-07] MEDS: SENNA/DOCUSATE NA (8.6MG/50MG) TAB PO SCH ×2 (08:43→21:12)
[2018-08-07] MEDS: DOCUSATE SODIUM 100 MG CAP PO SCH (08:43)
[2018-08-07] MEDS: NIFEdipine (XL) 30 MG TAB PO SCH (08:43)
[2018-08-07] MEDS: OXYCODONE/ACETAMINOPHEN (5/325) TAB PO PRN (09:46)
[2018-08-07] MEDS ORDERED: NIFEdipine (XL) 30 MG TAB PO ONE (13:00)
--- NOTE | 2018-08-07 13:59 | PN ---
Date/Time of Note Date/Time of Note DATE: 08/07/18 TIME: 13:58 Objective Vitals Vital Signs Date Temp Pulse Resp B/P (MAP) Pulse Ox O2 O2 Flow FiO2 Time Delivery Rate 08/07/18 99.5 76 18 150/96 Room Air 12:00 (114) 08/04/18 93 14:00 Results Result Diagram: 08/07/18 0740 08/07/18 0740 Medications Medications Current Medications Prenat Multivit/ [place]/Iron/Folic Ac () 1 tab DAILY PO Last administered on 08/07/18at 08:43; Admin Dose 1 TAB; Start 08/04/18 at 09:00 Ferrous Sulfate (Ferrous Sulfate (Ec)) 325 mg DAILY PO Last administered on 08/07/18at 08:43; Admin Dose 325 MG; Start 08/04/18 at 09:00 Docusate Sodium (Colace) 100 mg DAILY PO Last administered on 08/07/18at 08:43; Admin Dose 100 MG; Start 08/04/18 at 09:00 Labetalol HCl (Labetalol) 40 mg ONCE PRN IV ELEVATED BLOOD PRESSURE; Start 08/03/18 at 14:00 Labetalol HCl (Labetalol) 80 mg ONCE PRN IV ELEVATED BLOOD PRESSURE; Start 08/03/18 at 14:00 Hydralazine HCl (Apresoline) 10 mg ONCE PRN IV ELEVATED BLOOD PRESSURE; Start 08/03/18 at 14:00 Oxytocin/Lactated Ringer's 500 ml @ 0 mls/hr ONCE PRN IV .VAGINAL BLEEDING; Start 08/03/18 at 14:00 Methylergonovine Maleate (Methergine) 0.2 mg ONCE PRN IM .VAGINAL BLEEDING; Start 08/03/18 at 14:00 Carboprost Tromethamine (Hemabate) 250 mcg ONCE PRN IM .VAGINAL BLEEDING; Start 08/03/18 at 14:00 Diagnostic Test (Pha) (Accu-Chek) 1 ea 02 XX ; Start 08/04/18 at 02:00 Hydralazine HCl (Apresoline) 10 mg Q4H PRN IV sbp greater than 160; Start 08/03/18 at 16:30 Oxycodone/ Acetaminophen (Percocet (5/ 325)) 1 tab Q4H PRN PO .PAIN 4-6 Last administered on 08/07/18 09:46; Admin Dose 1 TAB; Start 08/03/18 at 16:30 Oxycodone/ Acetaminophen (Percocet (5/ 325)) 2 tab Q4H PRN PO .PAIN 7-10 Last administered on 08/06/18 20:21; Admin Dose 2 TAB; Start 08/03/18 at 16:30 Simethicone (Mylicon) 160 mg Q8H PRN PO .GAS; Start 08/03/18 at 16:30 Senna/Docusate Sodium (Senokot-S) 1 tab BID PO Last administered on 08/07/18 08:43; Admin Dose 1 TAB; Start 08/03/18 at 21:00 Sodium Biphosphate/ Sodium Phosphate (Fleet Enema) 133 ml DAILY PRN [place] .CONSTIPATION; Start 08/03/18 at 16:30 Lanolin (Lanolin Hpa) 1 applic BEDSIDE MEDICATION PRN TOP .NIPPLES; Start 08/03/18 at 16:30 Misoprostol (Cytotec) 1,000 mcg ONCE PRN [place] .VAGINAL BLEEDING; Start 08/03/18 at 16:30 Diagnostic Test (Pha) (Accu-Chek) 1 ea 2 HOURS AFTER MEALS XX Last administered on 08/07/18 10:05; Admin Dose 1 EA; Start 08/03/18 at 19:35 Insulin Glargine (Lantus) 4 units DAILY@2000 SC Last administered on 08/06/18 21:13; Admin Dose 4 UNITS; Start 08/03/18 at 20:00 Insulin Aspart (Novolog Insulin Pen) 2 unit WITH MEALS SC Last administered on 08/07/18 12:19; Admin Dose 2 UNIT; Start 08/03/18 at 17:35 Insulin Aspart (Novolog Insulin Pen) NOVOLOG *MILD* ALGORITHM WITH MEALS BEDTIME SC Last administered on 08/06/18at 20:35; Admin Dose 1 UNIT; Start 08/03/18 at 17:35 Miscellaneous Information 1 ea NOTE XX ; Start 08/03/18 at 17:00 Glucose (Glutose) 15 gm Q15M PRN PO DECREASED GLUCOSE; Start 08/03/18 at 17:00 Glucose (Glutose) 22.5 gm Q15M PRN PO DECREASED GLUCOSE; Start 08/03/18 at 17:00 Dextrose (D50w Syringe) 25 ml Q15M PRN IV DECREASED GLUCOSE; Start 08/03/18 at 17:00 Dextrose (D50w Syringe) 50 ml Q15M PRN IV DECREASED GLUCOSE; Start 08/03/18 at 17:00 Glucagon (Glucagen) 1 mg Q15M PRN IM DECREASED GLUCOSE; Start 08/03/18 at 17:00 Glucose (Glutose) 15 gm Q15M PRN BUCCAL DECREASED GLUCOSE; Start 08/03/18 at 17:00 Nifedipine (Procardia Xl) 60 mg DAILY PO ; Start 08/08/18 at 09:00 VTE Prophylaxis Risk score (from [facility] [place])>0 risk: 4 SCD applied (from [facility] [place]): No SCD contraindication: other Lines/Catheters IV Catheter Type: Edou[place] in Place: No Assessment/Plan Hospital Course Subjective Patient doing well, no acute complaints, mild elevated BP overnight Objective Physical exam General: Patient is laying in bed and answers questions appropriately Mentation: Patient is alert and oriented 4, Head: Normocephalic atraumatic Eyes: EOMI, pupils reactive to light Neck: Supple, nontender, midline Respiratory: Clear to auscultation bilaterally Cardiovascular: regular rate, no obvious murmurs Gastrointestinal: Minimally tender to palpation, bowel sounds heard. Neurological: Moves all extremities spontaneously Skin: Surgical site bandaged, CDI Assessment and plan Preeclampsia with hellp syndrome, resolved -Betamethasone and magnesium per OB given -OB managed with delivery -Monitor very closely Diabetes mellitus -Insulin at home -Dehydrator is on board Hypertension -Continue home medications and adjust medications -BP elevated, nifedipine XL started per OB, this is a good medication and has low profile of side effects, stop labetalol as likely easier to titrate up on nifedipine XL instead of taking 2 different medications. I recommend discharge with nifedipine XL at appropriate titrated dose. Increased nifedipine XL to 60 mg a day Thrombocytopenia -Likely secondary to above syndrome, transfuse as needed Elevated liver enzymes -Likely secondary to above syndrome, monitor closely, repeat liver labs tomorrow Disposition -Follow along with OB and court monitor, monitor blood pressure, blood sugars and magnesium level closely. -Titrate up nifedipine XL as needed, Ensure 24 hours of being normotensive before discharge. SABRINA WELLS August 07, 2018 13:59
--- NOTE | 2018-08-07 18:07 | CONS ---
Assessment/Plan Assessment/Plan Hospital Course (Demo Recall) Type 2 DM -FS in target range -continue Lanuts 4 units daily -continue novolog 2 units TIDAC -continue mild dose novolog correction scale AC and HS Consultation Date/Type/Reason Admit Date/Time August 03, 2018 at 11:00 Initial Consult Date 08/03/18 Requesting Provider: SETH LAUREANO MD Date/Time of Note DATE: 08/07/18 TIME: 18:04 24 HR Interval Summary Free Text/Dictation Patient seen and examined at bedside, no acute events overnight. She is pumping at bedside. Exam/Review of Systems Exam Vitals Vital Signs Date Temp Pulse Resp B/P (MAP) Pulse Ox O2 O2 Flow FiO2 Time Delivery Rate 08/07/18 98.7 80 18 150/93 Room Air 16:10 (112) 08/04/18 93 14:00 Exam General: Comfortable in appearance, not in acute distress. Skin appropriate for ethnicity Eye: Extraocular movements are intact, Normal conjunctiva. HENT: Normocephalic, atraumatic. Respiratory: Breath sounds are equal, Symmetrical chest wall expansion. Cardiovascular: S1, S2. No murmur. No LE edema Gastrointestinal: Soft, Dressing band over abdomen. Integumentary: Warm to touch. Neurologic: Alert, Oriented. Cognition and Speech: Speech clear and coherent, Functional cognition intact. Psychiatric: Cooperative, Appropriate mood & affect. Results Result Diagram: 08/07/18 0740 08/07/18 0740 Results 24hrs Laboratory Tests Test 08/06/18 20:24 08/07/18 02:03 08/07/18 07:40 08/07/18 08:17 Bedside Glucose 162 144 101 White Blood Count 11.2 #H Red Blood Count 4.17 L Hemoglobin 11.9 L Hematocrit 36.5 L Mean Corpuscular 87.5 Volume Mean Corpuscular 28.5 L Hemoglobin Mean Corpuscular 32.6 Hemoglobin Concent Red Cell 14.7 H Distribution Width Platelet Count 163 # Mean Platelet Volume 10.9 H Immature 1.700 H Granulocytes % Neutrophils % 66.7 Lymphocytes % 22.0 Monocytes % 7.5 Eosinophils % 1.7 Basophils % 0.4 Nucleated Red Blood 0.0 Cells % Immature 0.190 H Granulocytes # Neutrophils # 7.5 Lymphocytes # 2.5 Monocytes # 0.8 Eosinophils # 0.2 Basophils # 0.1 Nucleated Red Blood 0.0 Cells # Sodium Level 137 Potassium Level 4.3 Chloride Level 104 Carbon Dioxide Level 27 Anion Gap 6 Blood Urea Nitrogen 15 Creatinine 0.54 Est Glomerular > 60 Filtrat Rate mL/min Glucose Level 94 Calcium Level 8.8 Total Bilirubin 0.2 Direct Bilirubin 0.00 Indirect Bilirubin 0.2 Aspartate Amino 56 H Transf (AST/SGOT) Alanine 52 Aminotransferase (AL T/SGPT) Alkaline Phosphatase 107 Total Protein 6.6 Albumin 3.1 L Globulin 3.50 H Albumin/Globulin 0.88 Ratio Test 08/07/18 10:45 08/07/18 12:15 08/07/18 14:26 08/07/18 17:40 Bedside Glucose 133 132 139 121 Medications Medication Current Medications Prenat Multivit/ [employer]/Iron/Folic Ac () 1 tab DAILY PO Last administered on 08/07/18at 08:43; Admin Dose 1 TAB; Start 08/04/18 at 09:00 Ferrous Sulfate (Ferrous Sulfate (Ec)) 325 mg DAILY PO Last administered on 08/07/18at 08:43; Admin Dose 325 MG; Start 08/04/18 at 09:00 Docusate Sodium (Colace) 100 mg DAILY PO Last administered on 08/07/18at 08:43; Admin Dose 100 MG; Start 08/04/18 at 09:00 Labetalol HCl (Labetalol) 40 mg ONCE PRN IV ELEVATED BLOOD PRESSURE; Start 08/03/18 at 14:00 Labetalol HCl (Labetalol) 80 mg ONCE PRN IV ELEVATED BLOOD PRESSURE; Start 08/03/18 at 14:00 Hydralazine HCl (Apresoline) 10 mg ONCE PRN IV ELEVATED BLOOD PRESSURE; Start 08/03/18 at 14:00 Oxytocin/Lactated Ringer's 500 ml @ 0 mls/hr ONCE PRN IV .VAGINAL BLEEDING; Start 08/03/18 at 14:00 Methylergonovine Maleate (Methergine) 0.2 mg ONCE PRN IM .VAGINAL BLEEDING; Start 08/03/18 at 14:00 Carboprost Tromethamine (Hemabate) 250 mcg ONCE PRN IM .VAGINAL BLEEDING; Start 08/03/18 at 14:00 Diagnostic Test (Pha) (Accu-Chek) 1 ea 02 XX ; Start 08/04/18 at 02:00 Hydralazine HCl (Apresoline) 10 mg Q4H PRN IV sbp greater than 160; Start 08/03/18 at 16:30 Oxycodone/ Acetaminophen (Percocet (5/ 325)) 1 tab Q4H PRN PO .PAIN 4-6 Last administered on 08/07/18 09:46; Admin Dose 1 TAB; Start 08/03/18 at 16:30 Oxycodone/ Acetaminophen (Percocet (5/ 325)) 2 tab Q4H PRN PO .PAIN 7-10 Last administered on 08/06/18 20:21; Admin Dose 2 TAB; Start 08/03/18 at 16:30 Simethicone (Mylicon) 160 mg Q8H PRN PO .GAS; Start 08/03/18 at 16:30 Senna/Docusate Sodium (Senokot-S) 1 tab BID PO Last administered on 08/07/18 08:43; Admin Dose 1 TAB; Start 08/03/18 at 21:00 Sodium Biphosphate/ Sodium Phosphate (Fleet Enema) 133 ml DAILY PRN [place] .CONSTIPATION; Start 08/03/18 at 16:30 Lanolin (Lanolin Hpa) 1 applic BEDSIDE MEDICATION PRN TOP .NIPPLES; Start 08/03/18 at 16:30 Misoprostol (Cytotec) 1,000 mcg ONCE PRN [place] .VAGINAL BLEEDING; Start 08/03/18 at 16:30 Diagnostic Test (Pha) (Accu-Chek) 1 ea 2 HOURS AFTER MEALS XX Last administered on 08/07/18 14:29; Admin Dose 1 EA; Start 08/03/18 at 19:35 Insulin Glargine (Lantus) 4 units DAILY@2000 SC Last administered on 08/06/18 21:13; Admin Dose 4 UNITS; Start 08/03/18 at 20:00 Insulin Aspart (Novolog Insulin Pen) 2 unit WITH MEALS SC Last administered on 08/07/18 17:46; Admin Dose 2 UNIT; Start 08/03/18 at 17:35 Insulin Aspart (Novolog Insulin Pen) NOVOLOG *MILD* ALGORITHM WITH MEALS BEDTIME SC Last administered on 08/06/18 20:35; Admin Dose 1 UNIT; Start 08/03/18 at 17:35 Miscellaneous Information 1 ea NOTE XX ; Start 08/03/18 at 17:00 Glucose (Glutose) 15 gm Q15M PRN PO DECREASED GLUCOSE; Start 08/03/18 at 17:00 Glucose (Glutose) 22.5 gm Q15M PRN PO DECREASED GLUCOSE; Start 08/03/18 at 17:00 Dextrose (D50w Syringe) 25 ml Q15M PRN IV DECREASED GLUCOSE; Start 08/03/18 at 17:00 Dextrose (D50w Syringe) 50 ml Q15M PRN IV DECREASED GLUCOSE; Start 08/03/18 at 17:00 Glucagon (Glucagen) 1 mg Q15M PRN IM DECREASED GLUCOSE; Start 08/03/18 at 17:00 Glucose (Glutose) 15 gm Q15M PRN BUCCAL DECREASED GLUCOSE; Start 08/03/18 at 17:00 Nifedipine (Procardia Xl) 60 mg DAILY PO ; Start 08/08/18 at 09:00 SANCEHZ MARI MD August 07, 2018 18:07
[2018-08-07] MEDS: INSULIN GLARGINE [LANTus] (100 UNITS/ML) SYG SC SCH (21:07)
[2018-08-08 00:25] VITALS: BP 135/86; PULSE 83; RESP 18
[2018-08-08] MEDS: OXYCODONE/ACETAMINOPHEN (5/325) TAB PO PRN (02:22)
[2018-08-08 04:00] VITALS: BP 138/87; PULSE 79; RESP 18
[2018-08-08] MEDS: INSULIN ASPART [NOVOLOG] 3 ML PEN SC SCH ×4 (08:23→17:56)
[2018-08-08] MEDS: PRENATAL VITAMIN PO SCH (08:54)
[2018-08-08] MEDS: FERROUS SULFATE (EC) 325 MG TAB PO SCH (08:54)
[2018-08-08] MEDS: SENNA/DOCUSATE NA (8.6MG/50MG) TAB PO SCH (09:00)
[2018-08-08] MEDS: DOCUSATE SODIUM 100 MG CAP PO SCH (09:00)
[2018-08-08] MEDS ORDERED: NIFEdipine (XL) 30 MG TAB PO SCH (09:00)
--- NOTE | 2018-08-08 11:47 | PN ---
Date/Time of Note Date/Time of Note DATE: 08/08/18 TIME: 11:45 Objective Vitals Vital Signs Date Temp Pulse Resp B/P (MAP) Pulse Ox O2 O2 Flow FiO2 Time Delivery Rate 08/08/18 98.2 79 18 138/87 Room Air 04:00 (104) 08/04/18 93 14:00 Results Result Diagram: 08/07/18 0740 08/07/18 0740 Medications Medications Current Medications Prenat Multivit/ [place]/Iron/Folic Ac () 1 tab DAILY PO Last administered on 08/08/18at 08:54; Admin Dose 1 TAB; Start 08/04/18 at 09:00 Ferrous Sulfate (Ferrous Sulfate (Ec)) 325 mg DAILY PO Last administered on 08/08/18at 08:54; Admin Dose 325 MG; Start 08/04/18 at 09:00 Docusate Sodium (Colace) 100 mg DAILY PO Last administered on 08/07/18at 08:43; Admin Dose 100 MG; Start 08/04/18 at 09:00 Labetalol HCl (Labetalol) 40 mg ONCE PRN IV ELEVATED BLOOD PRESSURE; Start 08/03/18 at 14:00 Labetalol HCl (Labetalol) 80 mg ONCE PRN IV ELEVATED BLOOD PRESSURE; Start 08/03/18 at 14:00 Hydralazine HCl (Apresoline) 10 mg ONCE PRN IV ELEVATED BLOOD PRESSURE; Start 08/03/18 at 14:00 Oxytocin/Lactated Ringer's 500 ml @ 0 mls/hr ONCE PRN IV .VAGINAL BLEEDING; Start 08/03/18 at 14:00 Methylergonovine Maleate (Methergine) 0.2 mg ONCE PRN IM .VAGINAL BLEEDING; Start 08/03/18 at 14:00 Carboprost Tromethamine (Hemabate) 250 mcg ONCE PRN IM .VAGINAL BLEEDING; Start 08/03/18 at 14:00 Diagnostic Test (Pha) (Accu-Chek) 1 ea 02 XX ; Start 08/04/18 at 02:00 Hydralazine HCl (Apresoline) 10 mg Q4H PRN IV sbp greater than 160; Start 08/03/18 at 16:30 Oxycodone/ Acetaminophen (Percocet (5/ 325)) 1 tab Q4H PRN PO .PAIN 4-6 Last administered on 08/08/18 02:22; Admin Dose 1 TAB; Start 08/03/18 at 16:30 Oxycodone/ Acetaminophen (Percocet (5/ 325)) 2 tab Q4H PRN PO .PAIN 7-10 Last administered on 08/06/18 20:21; Admin Dose 2 TAB; Start 08/03/18 at 16:30 Simethicone (Mylicon) 160 mg Q8H PRN PO .GAS; Start 08/03/18 at 16:30 Senna/Docusate Sodium (Senokot-S) 1 tab BID PO Last administered on 08/07/18 21:12; Admin Dose 1 TAB; Start 08/03/18 at 21:00 Sodium Biphosphate/ Sodium Phosphate (Fleet Enema) 133 ml DAILY PRN [place] .CONSTIPATION; Start 08/03/18 at 16:30 Lanolin (Lanolin Hpa) 1 applic BEDSIDE MEDICATION PRN TOP .NIPPLES; Start 08/03/18 at 16:30 Misoprostol (Cytotec) 1,000 mcg ONCE PRN [place] .VAGINAL BLEEDING; Start 08/03/18 at 16:30 Diagnostic Test (Pha) (Accu-Chek) 1 ea 2 HOURS AFTER MEALS XX Last administered on 08/07/18 14:29; Admin Dose 1 EA; Start 08/03/18 at 19:35 Insulin Glargine (Lantus) 4 units DAILY@2000 SC Last administered on 08/07/18 21:07; Admin Dose 4 UNITS; Start 08/03/18 at 20:00 Insulin Aspart (Novolog Insulin Pen) 2 unit WITH MEALS SC Last administered on 08/08/18 08:23; Admin Dose 2 UNIT; Start 08/03/18 at 17:35 Insulin Aspart (Novolog Insulin Pen) NOVOLOG *MILD* ALGORITHM WITH MEALS BEDTIME SC Last administered on 08/06/18 20:35; Admin Dose 1 UNIT; Start 08/03/18 at 17:35 Miscellaneous Information 1 ea NOTE XX ; Start 08/03/18 at 17:00 Glucose (Glutose) 15 gm Q15M PRN PO DECREASED GLUCOSE; Start 08/03/18 at 17:00 Glucose (Glutose) 22.5 gm Q15M PRN PO DECREASED GLUCOSE; Start 08/03/18 at 17:00 Dextrose (D50w Syringe) 25 ml Q15M PRN IV DECREASED GLUCOSE; Start 08/03/18 at 17:00 Dextrose (D50w Syringe) 50 ml Q15M PRN IV DECREASED GLUCOSE; Start 08/03/18 at 17:00 Glucagon (Glucagen) 1 mg Q15M PRN IM DECREASED GLUCOSE; Start 08/03/18 at 17:00 Glucose (Glutose) 15 gm Q15M PRN BUCCAL DECREASED GLUCOSE; Start 08/03/18 at 17:00 Nifedipine (Procardia Xl) 60 mg DAILY PO Last administered on 08/08/18at 08:55; Admin Dose 60 MG; Start 08/08/18 at 09:00 VTE Prophylaxis Risk score (from [facility] [place])>0 risk: 2 SCD applied (from [facility] [place]): No SCD contraindication: other Lines/Catheters IV Catheter Type: Edouard in Place: No Assessment/Plan Hospital Course Subjective Patient doing well, no acute complaints, BP stable past 24 hours Objective Physical exam General: Patient is laying in bed and answers questions appropriately Mentation: Patient is alert and oriented 4, Head: Normocephalic atraumatic Eyes: EOMI, pupils reactive to light Neck: Supple, nontender, midline Respiratory: Clear to auscultation bilaterally Cardiovascular: regular rate, no obvious murmurs Gastrointestinal: Minimally tender to palpation, bowel sounds heard. Neurological: Moves all extremities spontaneously Skin: Surgical site bandaged, CDI Assessment and plan Preeclampsia with hellp syndrome, resolved -Betamethasone and magnesium per OB given -OB managed with delivery -Monitor very closely Diabetes mellitus -Insulin at home -Shipping Receiving Manager is on board Hypertension -Continue home medications and adjust medications -BP elevated, nifedipine XL started per OB, this is a good medication and has low profile of side effects, stop labetalol as likely easier to titrate up on nifedipine XL instead of taking 2 different medications. I recommend discharge with nifedipine XL at appropriate titrated dose. Increased nifedipine XL to 60 mg a day Thrombocytopenia -Likely secondary to above syndrome, transfuse as needed Elevated liver enzymes -Likely secondary to above syndrome, monitor closely, repeat liver labs tomorrow Disposition -Follow along with OB and pharmacy technician inpatient, monitor blood pressure, blood sugars and magnesium level closely. -Blood pressure is well controlled at current dose of nifedipine 60 mg XL, if patient's blood pressures stay below 150, patient may be discharged later tonight from a blood pressure perspective, will defer OB care and diabetes management and discharge to pharmacy technician inpatient and OB.. SABRINA WELLS August 08, 2018 11:47
[2018-08-08 12:58] VITALS: BP 135/89; PULSE 99; RESP 18
--- NOTE | 2018-08-08 13:39 | DS ---
Date/Time of Note Date/Time of Note DATE: 08/08/18 TIME: 13:36 Obstetrical Discharge Record Final Diagnosis Final Diagnosis: delivered Other Final Diagnosis HELLP Syndrome Chronic hypertension Diabetes Type 2 Section Section: Primary Primary Indication HELLP syndrome Complications Preg induced Hypertension, Other (HELLP syndrome and CHTN. she is being discharged on Procardai XL 60 mg BID and [place] prn # 30) Augmentation: No Induction: No Rupture of Membranes: No Condition on Discharge Physical Assessment Voiding: Yes Bowel Movement: Yes Breast: Soft, non-tender, Filling Fundus: Firm Abdomen and Incision: soft, appropriate tender, incision is clean and intact Calf Tenderness: No Patient Condition: Good SETH LAUREANO MD August 08, 2018 13:39
--- NOTE | 2018-08-08 13:47 | QN ---
Documentation Comment Late entry note from August 07, 2018 Status post primary for Preeclampsia with severe features HELLP Syndrome and Diabetes Patient stable and afebrile Vital signs stable VS - Last 72 Hours, by Label Date Temp Pulse Resp B/P (MAP) Pulse Ox O2 O2 Flow FiO2 Time Delivery Rate 08/08/18 98.0 99 18 135/89 Room Air 12:58 (104) 08/08/18 98.2 79 18 138/87 Room Air 04:00 (104) 08/08/18 98.4 83 18 135/86 Room Air 00:25 (102) 08/07/18 99.0 96 18 138/84 Room Air 19:50 (102) 08/07/18 98.7 80 20 153/93 Room Air 16:00 (113) 08/07/18 99.5 76 18 150/96 Room Air 12:00 (114) 08/07/18 99.0 73 16 161/95 Room Air 09:07 (117) 08/07/18 98.2 69 18 151/87 Room Air 03:30 (108) 08/07/18 98.3 72 18 152/86 Room Air 00:30 (108) 08/06/18 98.4 84 18 152/96 Room Air 20:15 (114) 08/06/18 98.4 85 18 150/91 Room Air 20:00 (110) 08/06/18 98.8 70 18 140/87 Room Air 16:00 (104) 08/06/18 98.5 73 18 131/75 Room Air 08:30 (93) 08/06/18 66 149/86 06:10 (107) 08/06/18 79 150/92 04:25 (111) 08/06/18 98.3 76 19 158/91 Room Air 03:30 (113) 08/05/18 98.2 84 19 138/89 Room Air 19:30 (105) 08/05/18 98.1 78 19 135/84 Room Air 16:00 (101) Hematology - 72 Hrs Test 08/06/18 05:30 08/07/18 07:40 Hematocrit 34.8 % (37.0-47.0) L 36.5 % (37.0-47.0) L Hemoglobin 11.3 g/dl (12.0-16.0) L 11.9 g/dl (12.0-16.0) L Mean Corpuscular 28.9 pg (29.0-33.0) L 28.5 pg (29.0-33.0) L Hemoglobin Mean Corpuscular 32.5 g/dl (32.0-37.0) 32.6 g/dl (32.0-37.0) Hemoglobin Concent Mean Corpuscular Volume 89.0 fl (82.0-101.0) 87.5 fl (82.0-101.0) Mean Platelet Volume 11.1 fl (7.4-10.4) H 10.9 fl (7.4-10.4) H Platelet Count 126 10^3/UL (140-415) L 163 10^3/UL (140-415) # Red Blood Count 3.91 10^6/ul (4.20-5.40) 4.17 10^6/ul (4.20-5.40) L L Red Cell Distribution 15.1 % (11.5-14.5) H 14.7 % (11.5-14.5) H Width White Blood Count 14.1 10^3/ul (4.8-10.8) 11.2 10^3/ul (4.8-10.8) H #H Chemistry Test 08/05/18 14:52 08/05/18 18:00 08/05/18 20:09 08/05/18 22:21 Bedside 127 102 147 140 Glucose mg/dL (70-220) mg/dL (70-220) mg/dL (70-220) mg/dL (70-220) Test 08/06/18 05:30 08/06/18 08:17 08/06/18 10:30 08/06/18 12:36 Sodium Level 137 mmol/L (135-144 ) Potassium 4.8 Level mmol/L (3.5-5.1 ) Chloride Level 105 mmol/L (97-110) Carbon Dioxide 28 Level mmol/L (21-31) Anion Gap 4 (5-13) L Blood Urea 17 mg/dl (7-20) Nitrogen Creatinine 0.58 mg/dl (0.44-1.0 0) Est Glomerular > 60 Filtrat mL/min (>60) Rate mL/min Glucose Level 77 mg/dl (70-220) Calcium Level 8.4 mg/dl (8.4-10.2 ) Phosphorus 3.5 Level mg/dl (2.5-4.9) Magnesium 2.0 Level mg/dl (1.7-2.5) # Bedside 70 123 102 Glucose mg/dL (70-220) mg/dL (70-220) mg/dL (70-220) Test 08/06/18 15:00 08/06/18 18:01 08/06/18 20:24 08/07/18 02:03 Bedside 112 93 162 144 Glucose mg/dL (70-220) mg/dL (70-220) mg/dL (70-220) mg/dL (70-220) Test 08/07/18 07:40 08/07/18 08:17 08/07/18 10:45 08/07/18 12:15 Sodium Level 137 mmol/L (135-144 ) Potassium 4.3 Level mmol/L (3.5-5.1 ) Chloride Level 104 mmol/L (97-110) Carbon Dioxide 27 Level mmol/L (21-31) Anion Gap 6 (5-13) Blood Urea 15 mg/dl (7-20) Nitrogen Creatinine 0.54 mg/dl (0.44-1.0 0) Est Glomerular > 60 Filtrat mL/min (>60) Rate mL/min Glucose Level 94 mg/dl (70-220) Calcium Level 8.8 mg/dl (8.4-10.2 ) Total 0.2 Bilirubin mg/dl (0.2-1.3) Direct 0.00 Bilirubin mg/dl (0.00-0.2 0) Indirect 0.2 Bilirubin mg/dl (0-1.1) Aspartate Amino 56 IU/L (15-46) Transf (AST/SGO H T) Alanine 52 IU/L (13-69) Aminotransferas e (ALT/SGPT) Alkaline 107 Phosphatase IU/L (42-121) Total Protein 6.6 g/dl (6.1-8.1) Albumin 3.1 g/dl (3.3-4.9) L Globulin 3.50 g/dl (1.3-3.2) H Albumin/Globuli 0.88 n Ratio Bedside 101 133 132 Glucose mg/dL (70-220) mg/dL (70-220) mg/dL (70-220) Test 08/07/18 14:26 08/07/18 17:40 08/07/18 20:05 08/08/18 08:13 Bedside 139 121 148 98 Glucose mg/dL (70-220) mg/dL (70-220) mg/dL (70-220) mg/dL (70-220) Test 08/08/18 10:31 08/08/18 12:22 Bedside 122 114 Glucose mg/dL (70-220) mg/dL (70-220) Abdomen soft, fundus firm Incision clean,dry,intact Extremities nontender Assessment and plan Patient currently on Procardia Patient stable and doing well Encouraged to ambulate Continue with routine postop care TONY JOSEPH MD August 08, 2018 13:47
[2018-08-08 15:45] VITALS: BP 139/92; PULSE 98; RESP 18
--- NOTE | 2018-08-08 16:24 | CONS ---
Assessment/Plan Assessment/Plan Hospital Course (Demo Recall) Type 2 DM -FS in target range -continue Lanuts 4 units daily -continue novolog 2 units TIDAC -continue mild dose novolog correction scale AC and HS -upon discharge can go home on metformin 1000mg po BID (script in chart) and f/u with commercial real estate associate or PCP Consultation Date/Type/Reason Admit Date/Time August 03, 2018 at 11:00 Initial Consult Date 08/03/18 Requesting Provider: SETH LAUREANO MD Date/Time of Note DATE: 08/08/18 TIME: 16:23 24 HR Interval Summary Free Text/Dictation Patient seen and examined at bedside. No acute events overnight. She is making good milk supply and tolerating diet well. Plan for discharge today. Exam/Review of Systems Exam Vitals Vital Signs Date Temp Pulse Resp B/P (MAP) Pulse Ox O2 O2 Flow FiO2 Time Delivery Rate 08/08/18 98.8 98 18 139/92 15:45 (108) 08/08/18 Room Air 12:58 08/04/18 93 14:00 Exam General: Comfortable in appearance, not in acute distress. Skin appropriate for ethnicity Eye: Extraocular movements are intact, Normal conjunctiva. HENT: Normocephalic, atraumatic. Respiratory: Breath sounds are equal, Symmetrical chest wall expansion. Cardiovascular: S1, S2. No murmur. No LE edema Gastrointestinal: Soft, Dressing band over abdomen. Integumentary: Warm to touch. Neurologic: Alert, Oriented. Cognition and Speech: Speech clear and coherent, Functional cognition intact. Psychiatric: Cooperative, Appropriate mood & affect. Results Result Diagram: 08/07/18 0740 08/07/18 0740 Results 24hrs Laboratory Tests Test 08/07/18 17:40 08/07/18 20:05 08/08/18 08:13 08/08/18 10:31 Bedside Glucose 121 148 98 122 Test 08/08/18 12:22 08/08/18 14:37 Bedside Glucose 114 170 Medications Medication Current Medications Prenat Multivit/ District Operations Manager/Iron/Folic Ac () 1 tab DAILY PO Last administered on 08/08/18at 08:54; Admin Dose 1 TAB; Start 08/04/18 at 09:00 Ferrous Sulfate (Ferrous Sulfate (Ec)) 325 mg DAILY PO Last administered on 08/08/18at 08:54; Admin Dose 325 MG; Start 08/04/18 at 09:00 Docusate Sodium (Colace) 100 mg DAILY PO Last administered on 08/07/18at 08:43; Admin Dose 100 MG; Start 08/04/18 at 09:00 Labetalol HCl (Labetalol) 40 mg ONCE PRN IV ELEVATED BLOOD PRESSURE; Start 08/03/18 at 14:00 Labetalol HCl (Labetalol) 80 mg ONCE PRN IV ELEVATED BLOOD PRESSURE; Start 08/03/18 at 14:00 Hydralazine HCl (Apresoline) 10 mg ONCE PRN IV ELEVATED BLOOD PRESSURE; Start 08/03/18 at 14:00 Oxytocin/Lactated Ringer's 500 ml @ 0 mls/hr ONCE PRN IV .VAGINAL BLEEDING; Start 08/03/18 at 14:00 Methylergonovine Maleate (Methergine) 0.2 mg ONCE PRN IM .VAGINAL BLEEDING; Start 08/03/18 at 14:00 Carboprost Tromethamine (Hemabate) 250 mcg ONCE PRN IM .VAGINAL BLEEDING; Start 08/03/18 at 14:00 Diagnostic Test (Pha) (Accu-Chek) 1 ea 02 XX ; Start 08/04/18 at 02:00 Hydralazine HCl (Apresoline) 10 mg Q4H PRN IV sbp greater than 160; Start 08/03/18 at 16:30 Oxycodone/ Acetaminophen (Percocet (5/ 325)) 1 tab Q4H PRN PO .PAIN 4-6 Last administered on 08/08/18at 02:22; Admin Dose 1 TAB; Start 08/03/18 at 16:30 Oxycodone/ Acetaminophen (Percocet (5/ 325)) 2 tab Q4H PRN PO .PAIN 7-10 Last administered on 08/06/18at 20:21; Admin Dose 2 TAB; Start 08/03/18 at 16:30 Simethicone (Mylicon) 160 mg Q8H PRN PO .GAS; Start 08/03/18 at 16:30 Senna/Docusate Sodium (Senokot-S) 1 tab BID PO Last administered on 08/07/18at 21:12; Admin Dose 1 TAB; Start 08/03/18 at 21:00 Sodium Biphosphate/ Sodium Phosphate (Fleet Enema) 133 ml DAILY PRN NV .CONSTIPATION; Start 08/03/18 at 16:30 Lanolin (Lanolin Hpa) 1 applic BEDSIDE MEDICATION PRN TOP .NIPPLES; Start 08/03/18 at 16:30 Misoprostol (Cytotec) 1,000 mcg ONCE PRN NV .VAGINAL BLEEDING; Start 08/03/18 at 16:30 Diagnostic Test (Pha) (Accu-Chek) 1 ea 2 HOURS AFTER MEALS XX Last administered on 08/07/18at 14:29; Admin Dose 1 EA; Start 08/03/18 at 19:35 Insulin Glargine (Lantus) 4 units DAILY@2000 SC Last administered on 08/07/18 21:07; Admin Dose 4 UNITS; Start 08/03/18 at 20:00 Insulin Aspart (Novolog Insulin Pen) 2 unit WITH MEALS SC Last administered on 08/08/18at 12:26; Admin Dose 2 UNIT; Start 08/03/18 at 17:35 Insulin Aspart (Novolog Insulin Pen) NOVOLOG *MILD* ALGORITHM WITH MEALS BEDTIME SC Last administered on 08/06/18at 20:35; Admin Dose 1 UNIT; Start 08/03/18 at 17:35 Miscellaneous Information 1 ea NOTE XX ; Start 08/03/18 at 17:00 Glucose (Glutose) 15 gm Q15M PRN PO DECREASED GLUCOSE; Start 08/03/18 at 17:00 Glucose (Glutose) 22.5 gm Q15M PRN PO DECREASED GLUCOSE; Start 08/03/18 at 17:00 Dextrose (D50w Syringe) 25 ml Q15M PRN IV DECREASED GLUCOSE; Start 08/03/18 at 17:00 Dextrose (D50w Syringe) 50 ml Q15M PRN IV DECREASED GLUCOSE; Start 08/03/18 at 17:00 Glucagon (Glucagen) 1 mg Q15M PRN IM DECREASED GLUCOSE; Start 08/03/18 at 17:00 Glucose (Glutose) 15 gm Q15M PRN BUCCAL DECREASED GLUCOSE; Start 08/03/18 at 17:00 Nifedipine (Procardia Xl) 60 mg DAILY PO Last administered on 08/08/18at 08:55; Admin Dose 60 MG; Start 08/08/18 at 09:00 SANCHEZ MARI MD August 08, 2018 16:24
--- NOTE | 2018-08-09 19:11 | DELSUM ---
Delivery Summary A-C Datetime Report Generated by CPN: 08/09/2018 19:11 DELIVERY PERSONNEL Marketing Sales Supervisor: Leonarda, Li MATERNAL INFORMATION Delivery Anesthesia: Spinal Medications in Delivery: SEE ANESTHESIA RECORD Delivery QBL (ml): 761 Placenta Cultured: Yes Maternal Complications: Other Other Maternal Complications: SEVERE PIH, UNCONTROLLED DM LABOR SUMMARY EDC: 10/18/2018 00:00 No. Babies in Womb: 1 Attempted: No Labor Anesthesia: None LABOR INFORMATION Reason for Induction: Not Applicable Oxytocin: N/A Group B Beta Strep: Done, Result Unknown Antibiotics # of Doses: 1 Steroids Given: Partial Course; <24Hrs before Delivery Reason Steroids Not Administered: Indication MEMBRANES Membranes Rupture Method: Artificial Rupture of Membranes: 08/03/2018 15:22 Length of Rupture (hr): 0.00 Amniotic Fluid Color: Clear Amniotic Fluid Amount: Moderate Amniotic Fluid Odor: None STAGES OF LABOR Stage 3 hr: 0 Stage 3 min: 1 CSECTION DELIVERY Primary Indication: Severe PIH Secondary Indication: N/A CSection Urgency: Emergency CSection Incidence: Primary Labor: N/A Elective: Nonelective CSection Incision: Lower Uterine Transverse BABY A INFORMATION Infant Delivery Date/Time: 08/03/2018 15:22 Method of Delivery: Born in Route : Yes : N/A Forceps: Outlet Vacuum Extraction: N/A Shoulder Dystocia : N/A SHOULDER DYSTOCIA BABY A Infant Delivery Date/Time: 08/03/2018 15:22 PRESENTATION/POSITION BABY A Presentation: Cephalic Cephalic Presentation: Vertex Vertex Position: Left Occipital Anterior Breech Presentation: N/A PLACENTA INFORMATION BABY A Placenta Delivery Time : 08/03/2018 15:23 Placenta Method of Delivery: Manual Removal Placenta Status: Delivered INFORMATION BABY A Gestational Age at Delivery: 29.0 Gestational Status: - <34 Weeks Infant Outcome : Liveborn Condition : Fair Infant Sex: Male IDENTIFICATION/MEDS BABY A ID Band Location: Right Leg; Left Arm Sensor Applied: No Vitamin K Given : Not Given Erythromycin Given: Not Given WEIGHT/LENGTH BABY A Birthweight (gm): 1170 Weight (lb): 2 Infant Weight (oz): 9 CORD INFORMATION BABY A No. Cord Vessels: 3 Nuchal Cord : N/A Cord Blood Taken: Yes Suction: Mouth; Nose ASSESSMENT BABY A Physical Chemistry Professor/ALS Called : Yes Transferred To: NICU
== END 2018-08-08 18:45 | disposition home or self-care (01) | DRG 788 ==
LOC: OBT 10:35 → L-D 10:36 → OBT 11:00 → L-D 11:00 → PP1 08-04 10:08
PROVIDERS: ADMIT Specialist; ATTEND Specialist
PROC: 10D00Z1 Extraction of Products of Conception, Low, Open Approach (ICD-10-PCS; principal; 2018-08-03 15:00)
DX: O14.24 HELLP syndrome, complicating childbirth (principal); O24.12 Pre-existing type 2 diabetes mellitus, in childbirth; E11.9 Type 2 diabetes mellitus without complications; Z3A.29 29 weeks gestation of pregnancy; Z79.4 Long term (current) use of insulin; Z37.0 Single live birth
CPT/HCPCS: 36415; 36600; 76815; 76818; 80048; 80053; 81001; 82803; 82962; 83735; 84075; 84100; 85025; 85384; 85610; 85730; 86592; 86803; 86885; 86900; 86901; 86920; 87340; 88307; 90715; 99464; G0463; J0690; J0702; J1100; J1200; J1815; J1885; J2274; J2405; J2590; J3010; J3475; J7120